=== PATIENT | male | born 1945 | race Caucasian/White ===

== ENCOUNTER 2016-06-25 02:44 | Inpatient (IN) | payer OTHER ==
[~2016-06-25] VITALS: Ht 188 cm; Wt 87.1 kg
[~2016-06-25 02:44] MED LIST: ACCUPRIL40 M1 PO; AMLODIPINE BESY10 M1 PO; DICLOFENAC SODI75 M2 PO; ELIQUIS5 M1 PO; HYDROCHLOROTH12.5 M2 PO; PROTONIX40 M3 PO; TOPROL XL100 M1 PO
--- NOTE | 2016-06-25 14:10 | Operative Report ---
Operative/Inv Procedure Report Surgery Date: 06/25/16 Name of Procedure: Right reverse total shoulder arthroplasty Pre-Operative Diagnosis: Right end-stage rotator cuff arthropathy Post-Operative Diagnosis: Right end-stage rotator cuff arthropathy Estimated Blood Loss: 300mL Surgeon/Fund Manager: JOHN PAUL,Shane Jimenez PA-C Anesthesia: general endotracheal tube, block IV Fluids: 1700mL Implants: Tornier Aequalis Reversed II Glenoid base plate 25mm Glenoid centered sphere 36mm Standard humeral stem 7B, 132.5 deg Reversed Centered Tray +0mm Reversed polyethylene insert 36mm +9mm Compression screws 4.5mm - 25mm, 18mm Locking screws 4.5mm - 20mm, 23mm Urine Output: Not recorded Drains: None Specimens: Humeral head send to pathology per hospital protocol Tourniquet: None Complications: None Condition: Stable Operative/Procedure Note Note: INDICATION FOR PROCEDURE: Naif Rizo is a 71 year-old right hand dominant male who developed rotator cuff arthropathy. He underwent rotator cuff repair several years ago; gradually developed increased pain, stiffness, and dysfunction in the shoulder. He has significant pain at night and with motion of the right shoulder. Imaging of the shoulder showed advanced degenerative changes consistent with rotator cuff arthropathy with large osteophytes, central wear of the glenoid, and humeral head migration. After discussing the risks, benefits, and alternatives to surgery with the patient, he has opted to proceed with right reverse total shoulder arthroplasty. OPERATIVE REPORT: Naif Rizo arrived at [facility] on 06/25/2016. He was met in the pre- operative holding area, where his operative exremity was marking and his medical history reviewed. A regional nerve block was performed by the anesthesia service. He was taken into the operating room and placed supine on the OR table. A time-out was performed, in which the patient, operative extremity, and procedure were verified. The patient was induced under general anesthesia. SCDs were applied to bilateral lower legs. No VTE chemoprophylaxis was administered. Perioperative antibiotics were given. The patient was placed in a modified beach chair position; care was taken to pad all bony prominences and support the head in a neutral position. The right upper extremity was prepped and draped in the usual sterile fashion. The arm was supported by an articulated arm positioner. An incision was made in the anterior shoulder and taken down to the deltopectoral interval. The interval was divided and the cephalic vein protected and retracted laterally. The conjoint tendon was identified and a self-retaining retractor was placed gently under the conjoint and the deltoid. The facia overlying the anterior shoulder was carefully debrided for better visualization. The long head of biceps was identified and tenodesed to the upper border of the pectoralis major tendon. The proximal portion of the tendon was cut and removed. The anterior circumflex arteries were identified inferomedial to the surgical neck; these were carefully ligated. The subscapularis tendon was identified, tagged, and a tenotomy peel was gently performed with progress external rotation of the shoulder. There were large osteophytes noted off the inferior humeral head. The capsule was carefully dissected off the humerus and care was taken to stay next to the bone to avoid damage to the axillary nerve. The shoulder was then subluxed anteriorly. No remaining supraspinatus tendon was noted. Osteotomes and ronguers were used to remove the osteophytes surrounding the humeral head. The articular portion of the humeral head was cut using a guide. The humeral canal was opened and sequentially broached up to a size 7. This was left in place and the humerus protected with a metal plate. Attention was then turned to the glenoid. A retractor was used to posteriorly translate the humerus for glenoid exposure. The glenoid had central wear with anterior and posterior osteophytes. The osteophytes were carefully removed, as was any remaning labral tissue. A central wire was placed with a guid 12mm from the inferior border of the glenoid and a reamer was placed over the pin. A large inferior osteophyte was subsequently noted and the pin moved up in the glenoid with 10 deg superior tilt. The inner and outer reamers were used to create a flat surface and a ronguer was used to remove any additional bone. The central peg was reamed and standard baseplate impacted into position. The anterior and posterior compression screws were placed with excellent purchase. The superior and inferior locking screws were then placed. The 36mm glenosphere was impacted into placed and tightened. The shoulder was carefully rotated to re-expose the humeral cut. A standard tray trial was placed, followed by +6mm and +9mm poly trials. After reduction of the shoulder, both has good fit and motion, however the +9mm poly provided improved stablization. All of the implants were removed and the shoulder copiously irrigated with normal saline with bacitracin. Two 2.0mm drill holes were placed in the lesser tuberosity and #2 fiberwire suture passed through the holes. The size 7 stem and centralized tray implants were carefully impacted into place, around the sutures. The +9mm poly was then impacted into place and the shoulder reduced. The arm was taken through a range of motion with fluid motion and good stability. The shoulder was again irrigated with normal saline. The fiberwire sutures around the stem were used to repair the subscapularis tendon to the lesser tuberosity with ta-khushboo suture technique. The arm was placed in 20 deg of external rotation to avoid over-tensioning. The deltopectoral interval was closed with three interrupted #2 ethibond sutures. The shoulder was again irrigated and closed in layers using 0 vicryl, 2-0 vicryl, and a running 3-0 prolene for skin. The incision was reinforced with steri strips and dressed with gauze and ABD and secured with foam tape. An ultrasling was placed. The patient was repositioned and extubated without incidence. He was moved to a stretcher and taken to the recovery room in stable condition.
--- NOTE | 2016-06-25 15:08 | RADIOLOGY REPORT ---
EXAMINATION: XR SHOULDER, RIGHT CLINICAL INFORMATION: Post right shoulder 28. COMPARISON: CT May 2016. MRI April 2016. X-ray July 2015. TECHNIQUE: Single AP view of the right shoulder FINDINGS: Right total shoulder arthroplasty noted. The glenoid component appears somewhat low-lying position along more inferior aspect of the glenoid glenoid No periprosthetic fracture or suspicious area of lucency. Air is noted in the soft tissues compatible with postsurgical change. Additional findings: Arthrosis of the AC joint. Low lung volume in the right hemithorax likely due to suboptimal inspiration. IMPRESSION: Right total shoulder arthroplasty. Glenoid component somewhat inferiorly positioned within the remaining glenoid. Correlate with surgical procedure to determine if this is of any clinical significance.
--- NOTE | 2016-06-25 15:21 | PN- Orthopedic ---
Subjective Subjective: The patient was seen this afternoon postoperatively. He reports being comfortable in that his pain was under adequate control. He has some complaints of a scratchy throat was otherwise comfortable. He denies chest pain, difficulty breathing, or palpitations. Objective Vital Signs and I&Os Vital signs: Blood pressure 92/56, pulse 80, temperature 97.9, O2 sat urination 90% on room air Physical Exam: Gen.: Alert and in no obvious distress Skin: Warm and dry Cardiac: S1 and S2 irregular Pulmonary: Bilateral breath sounds are equal with good exchange Extremities: Right upper extremity in sling, surgical dressing is clean, dry, and intact. Gross motor and sensory are intact and there is a palpable radial pulse. Bilateral lower extremities are warm without calf tenderness or significant edema. Assessment/Plan Assessment/Plan Assessment: 71-year-old male status post right reverse total shoulder arthroplasty. Postoperative the patient is progressing as expected and his pain is under adequate control. Plan: Out of bed and ambulate Advance diet as tolerated Monitor for postoperative void Strict I's and O's Continue current pain regiment GI and DVT prophylaxis Resume home medications Core Measures/Miscellaneous Venous Thromboembolism VTE Risk Factors: Age > 40, Surgery VTE Contraindications: No Contraindications VTE Diagnosis: No Beta Ayad Is Beta Ayad a Home Med? Yes If Yes, Was This Ordered Today? Yes Antibiotics Is Patient on Antibiotics? Yes If Yes: prophylaxis
[2016-06-25 16:54] VITALS: BP 98/60
[2016-06-25 22:26] VITALS: BP 118/76
--- NOTE | 2016-06-25 23:39 | NUR ---
PT ARRIVED TO FLOOR AT 1700 WITH AT BEDSIDE. ALERT AND ORIENTED X 3. VSS. SLING ON R ARM, + CMS. AT 2030, PT NAUSEOUS AND SWEATING ACCORDING TO . VSS. WHEN I WENT INTO ROOM PT STATED HE FELT MUCH BETTER AND DID NOT WANT ANY ZOFRAN. WILL CONTINUE TO MONITOR PATIENT.
[2016-06-26 07:03] VITALS: BP 100/70
--- NOTE | 2016-06-26 07:43 | PN- Orthopedic ---
Subjective Subjective: Pain Well-controlled, tolerating diet without nausea or vomiting, out of bed to bathroom, denies chest pain or shortness of breath, no hand paresthesias, would like to discharge home today Objective Vital Signs and I&Os Vital Signs Date Time Temp Pulse Resp B/P B/P Pulse O2 O2 Flow FiO2 Mean Ox Delivery Rate 06/26 0703 98.1 88 20 100/70 94 Room Air 06/25 2226 98.8 80 20 118/76 92 Room Air 06/25 1654 97.6 72 20 98/60 93 Room Air Intake & Output 06/26 0800 06/26 0000 06/25 1600 06/25 0800 06/25 0000 06/24 1600 Intake Total 850 Output Total 600 Balance 250 Intake, IV 500 Intake, Oral 350 Output, Urine 600 Patient 192 lb Weight Weight Reported by Patient Measurement Method Physical Exam: Gen.: NAD Cards: S1-S2 RRR Pulm: CTAB Abdomen: Nontender nondistended soft Extremities: RUE: Fur Tanner strength 5/5, palpable radial pulse, dressing CDI, tender to palpation over dressing, sling in place, sensation intact and equal bilaterally Assessment/Plan Assessment/Plan POD #1 status post right TSA, currently stable. PLAN: Eliquis for DVT prophylaxis Pain meds when necessary Hep-Lock Home meds Regular diet Sling to right arm DC planning Core Measures/Miscellaneous Venous Thromboembolism VTE Risk Factors: Age > 40, Surgery VTE Contraindications: No Contraindications VTE Diagnosis: No Beta Ayad Is Beta Ayad a Home Med? Yes If Yes, Was This Ordered Today? Yes Antibiotics Is Patient on Antibiotics? Yes If Yes: prophylaxis
[2016-06-26 08:10] LABS: ABSOLUTE BASOPHIL COUNT 0 /CUMM (0.0-0.2); ABSOLUTE EOSINOPHIL COUNT 0 /CUMM (0.0-0.7); ABSOLUTE GRANULOCYTE CT 8.3 /CUMM (1.4-6.5); ABSOLUTE MONOCYTE COUNT 1.3 /CUMM (0.10-0.60); BASOPHIL % 0.1 % (0.0-2.0); EOSINOPHIL % 0 % (0-5); MEAN CORPUSCULAR HGB 30.8 PG (27.0-31.0); MEAN CORPUSCULAR HGB CONC 34.3 G/DL (33.0-37.0); MEAN CORPUSCULAR VOLUME 89.8 FL (80.0-94.0); MEAN PLATELET VOLUME 8.6 FL (7.4-10.4); PLATELET COUNT 212 /CUMM (130-400); RBC DISTRIBUTION WIDTH 13.3 % (11.5-14.5); RED BLOOD CELL CT 3.68 /CUMM (4.70-6.10); WHITE BLOOD CELL COUNT 10.6 /CUMM (4.8-10.8)
--- NOTE | 2016-06-26 10:28 | Patient Discharge Instructions ---
Discharge Instructions General Discharge Information You were seen/treated for: Right end-stage rotator cuff arthropathy You had these procedures: Right reverse total shoulder arthroplasty Watch for these problems: fever>101, worsening pain at surgical site, drainage from the wound, redness at wound, changes in sensation or motor ability in the surgical arm Call Surgeon to remove: Stitches Do not soak the wound: Yes Daily wet to dry dressings: No No bath, but you may shower: Yes Other wound care: Keep wound clean and dry. May shower, no tub baths. Do not soak wound. Apply dry gauze to wound as needed. Diet Continue normal diet: Yes Recommended Diet: Regular Additional DIET Information: Resume Regular healthy diet Activity Full Activity/No Limits: No Activity Self Limited: Yes (activity as tolerated) Activity Limited to: Walking with Assistance Other activity limits: No movement of surgical shoulder. Wear sling at all times. No lifting with surgical arm. Acute Coronary Syndrome Inclusion Criteria At DC or during hospital stay patient has or had the following: ACS DIAGNOSIS No Discharge Core Measures Meds if any: Prescribed or Continued at Discharge Meds if any: NOT Prescribed or Continued at Discharge Congestive Heart Failure Inclusion Criteria At DC or during hospital stay patient has or had the following: CHF DIAGNOSIS No Discharge Core Measures Meds if any: Prescribed or Continued at Discharge Meds if any: NOT Prescribed or Continued at Discharge Cerebrovascular accident Inclusion Criteria At DC or during hospital stay patient has or had the following: CVA/TIA Diagnosis No Discharge Core Measures Meds if any: Prescribed or Continued at Discharge Meds if any: NOT Prescribed or Continued at Discharge Venous thromboembolism Inclusion Criteria VTE Diagnosis No VTE Type NONE VTE Confirmed by (Test) NONE Discharge Core Measures - Per Current guidelines, there needs to be overlap - treatment for the first 5 days of Warfarin therapy. - If discharged on Warfarin prior to 5 days of - overlap therapy, the patient will need to be - assessed for post discharge needs including - *Post discharge parental anticoagulation - *Warfarin and/or parental anticoagulation education - *Follow up date to check INR post discharge At least 5 days overlap therapy as Inpatient No Meds if any: Prescribed or Continued at Discharge Note: Overlap Therapy is Warfarin and Anticoagulant Meds if any: NOT Prescribed or Continued at Discharge
--- NOTE | 2016-06-26 10:49 | Surg Short-stay <48hrs Dis Sum ---
Visit Information Visit Dates Admission Date: 06/25/16 Discharge Date: 06/26/2016 Surgical Short Stay DC Summary Admission Diagnosis: Right end-stage rotator cuff arthropathy Final Diagnosis: Right end-stage rotator cuff arthropathy, s/p Right reverse total shoulder arthroplasty Procedure(s): Right reverse total shoulder arthroplasty Summary/Significant Findings: 71-year-old male admitted 06/25/2016 for elective right reverse total shoulder arthroplasty. Operative procedure was performed by Dr. Tadeo without complications. Postoperatively, she was transferred to the surgical floor. He has worked with physical and occupational therapy. He is tolerating a regular diet, and his pain is well controlled with pain medications. He has been deemed stable for discharge Condition at Discharge: Stable Discharge Disposition: home health services Discharge instructions provided to patient/family: Yes Post discharge follow-up plan: Follow up with Dr. Tadeo as scheduled. Resume regular healthy diet. Take pain medications as needed. Sling at all times to right upper extremity. Activity as tolerated. Contact Dr. Tadeo's office is any questions or concerns.
[2016-06-26 12:14] VITALS: BP 118/80
[2016-06-26] MEDS ORDERED: TRAMADOL HCL50 M1 PO (14:16)
--- NOTE | 2016-06-26 15:19 | PN- Orthopedic ---
Surgical Brief Attending Note Brief Attending Note: Patient seen and examined; at bedside. Doing well, denies significant pain. Has not taken much for pain and does not want to go home with narcotics. Did not sleep well due to loud patient next door. Denies chest pain, shortness of breath, or GI upset. He is hoarse but denies sore throat. EXAM: Dressing clean, dry, intact. 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 A/P: 71yo M PDO#1 right reverse total shoulder. Doing well. Plan for d/c home today. 1. NWB RUE, ultrasling at all times. 2. Pain control 3. Resume Eliquis POD#1 4. Resume home medications 5. Dressing may be removed and he may shower on PDO#3. Do not submerge incision ; pat dry after shower. 6. Reviewed limitations with RUE and sling use. Follow up in clinic as scheduled.
[2016-07-25] MEDS ORDERED: QUINAPRIL HCL20 M1 PO (11:15)
[2016-07-25] MEDS ORDERED: AMLODIPINE BESY10 M1 PO (11:15)
== END 2016-06-26 14:57 | DRG 483 ==
LOC: 2NB 02:44 → SDA 02:44 → EDSTATUS 07:00 → SDA 07:00 → STS 07:00 → ENRESERV 16:05 → 2NB 16:52 → ENPENDDIS 06-26 14:42 → 2NB 06-26 14:57
PROVIDERS: Physician Assistant Surgical; ADMIT Orthopaedic Surgery Sports Medicine
PROC: 0RRJ00Z Replacement of Right Shoulder Joint with Reverse Ball and Socket Synthetic Substitute, Open Approach (ICD-10-PCS; principal; 2016-06-25)
PROC: 3E0T3BZ Introduction of Anesthetic Agent into Peripheral Nerves and Plexi, Percutaneous Approach (ICD-10-PCS; 2016-06-25)
DX: M19.011 Primary osteoarthritis, right shoulder (principal); I48.91 Unspecified atrial fibrillation; I10 Essential (primary) hypertension; Z79.01 Long term (current) use of anticoagulants; K22.70 Barrett's esophagus without dysplasia; M19.90 Unspecified osteoarthritis, unspecified site; Z85.820 Personal history of malignant melanoma of skin; K21.9 Gastro-esophageal reflux disease without esophagitis
CPT/HCPCS: 2NBP; 73030-RT; 88305; 97110-GO; 97116-GO; 97161-GP; 97165-GO; C9399; J0131; J0690; J1885; J7508

== ENCOUNTER 2016-06-27 16:25 | Inpatient (IN) | payer OTHER ==
[~2016-06-27] VITALS: Ht 188 cm; Wt 83.5 kg
[~2016-06-27 16:25] MED LIST changes: +TRAMADOL HCL50 M1 PO
--- NOTE | 2016-06-27 16:35 | ED CARDIAC/CP/PALPITATIONS ---
History of Present Illness General Chief Complaint: General Adult Stated Complaint: BIBA, CARDIAC ISSUES Source: patient, family, EMS Exam Limitations: no limitations Vital Signs & Intake/Output Vital Signs & Intake/Output Vital Signs Date Time Temp Pulse Resp B/P B/P Pulse O2 O2 Flow FiO2 Mean Ox Delivery Rate 06/27 1641 99.7 115 20 131/87 91 Nasal 2.0L Cannula 06/27 1640 93 Nasal 4.0L Cannula Triage Nurses Notes Reviewed? yes Onset: Gradual Duration: day(s): (1) Timing: remote history Quality/Severity: moderate Location: central Radiation: no radiation Activities at Onset: none Prior Chest Pain/Card Workup: stress test HPI: Patient is a 71-year-old male with history of atrial fibrillation, pulmonary embolus, hypertension, on allografts with recent right total shoulder replacement presenting to the emergency department with chief complaint of palpitations, shortness of breath that started this morning. Also complaining of urinary retention that started today. He thought that he may be developing a urinary tract infection so he went to walk in clinic they gave him Macrobid for a questionable urinary tract infection. Patient denies any fevers or chills nausea vomiting. No chest pain. Denies aNY LOWER EXT SWELLING. He reports that his ELIQUIS is held for 3 days prior to the surgery and he resumed ELIQUIS yesterday. (CATHERINE JACINTO,JUAN C) Allergies Coded Allergies: No Known Allergies (06/30/16) Reconcile Medications Apixaban (Eliquis) 5 MG TABLET 1 TAB PO BID A FIB TAKE 2 TABLETS (10MG) TWICE DAILY FOR 7 DAYS (TILL THE END OF 07/06) THEN 1 TABLET BY MOUTH TWICE DAILY TEHERAFTER Metoprolol Succ XL (Toprol XL) 100 MG TAB.ER.24H 1 TAB PO DAILY A FIB ( Reported) Pantoprazole Sodium (Protonix) 40 MG TABLET.DR 1 TAB PO BID GERD (Reported) (DEX PAUL,TATIANA Lee) Past History Travel History Traveled to [place] past 21 day No Medical History Any Pertinent Medical History? see below for history Neurological: NONE EENT: NONE Cardiovascular: AFIB, hypertension Respiratory: NONE Gastrointestinal: NONE Hepatic: NONE Renal: NONE Musculoskeletal: osteoarthritis Psychiatric: NONE Endocrine: NONE Blood Disorders: NONE Cancer(s): melanoma History of MRSA: No History of VRE: No History of CDIFF: No Surgical History Surgical History: hernia repair-incisional Psychosocial History Who do you live with Spouse Services at Home None What is your primary language Peruvian Family History Hx Contributory? No (JUAN C STRATTON) Review of Systems Review of Systems Constitutional: Reports: no symptoms. Comments Review of systems: See HPI, All other systems negative. Constitutional, no chills fever or weight loss HEENT: No visual changes no sore throat no congestion Cardiovascular: No chest pain, orthopnea or ankle swelling Skin, no jaundice no rashes Respiratory: ,NO cough sputum or hemoptysis GI: No nausea no vomiting : No dysuria No hematuria Muscle skeletal: no back pain, no neck pain, Neurologic: No numbness no confusion Psych: No stress anxiety or depression,. Heme/endocrine: No bruising no bleeding no polyuria or polydipsia Immunology: No splenectomy or history of AIDS (JUAN C STRATTON) Physical Exam Physical Exam General Appearance: well developed/nourished, no apparent distress, alert, awake , comfortable Cardiovascular: TACHYCARDIC Comments: Well-developed well-nourished person in no acute distress HEENT: Pupils equally round and reactive to light and accommodation. Nose is atraumatic. Pharynx normal. No swelling or edema. Neck: Supple, no lymphadenopathy, normal range of motion without pain or tenderness Back: Nontender, no CVA tenderness. Full range of motion Cardiovascular: TACHYCARDIC rate and rhythms no murmurs rubs or gallops, normal JVP Respiratory: Chest nontender. No respiratory distress.breath sounds slightly diminished to auscultation bilaterally Abdomen: Soft, mild tenderness to palpation over the suprapubic region, nondistended, no appreciable organomegaly. Normal bowel sounds. No ascites Extremity: Right upper extremity is in a shoulder immobilizer. No edema in the lower extremities, no calf tenderness to palpation, normal and equal pulses. Neuro: Alert oriented x3, motor sensory normal Skin: No appreciable rash on exposed skin, skin is warm and dry. Psych: Mood and affect is normal, memory and judgment is normal. Core Measures ACS in differential dx? Yes Severe Sepsis Present: No Septic Shock Present: No (JUAN C STRATTON) Progress Differential Diagnosis: AMI, aortic dissection, CHF/pulm edema, hyperkalemia, hypovolemia, musculoskeletal pain, pneumonia, pneumothorax, pulmonary embolism, unstable angina Diagnostic Imaging: Viewed by Me: CT Scan. Discussed w/RAD: CT Scan. Radiology Impression: PATIENT: MARIO FERGUSON PRESENT AGE: 71 PATIENT ACCOUNT NO: [id number] : 46 LOCATION: [facility] ORDERING PHYSICIAN: JUAN C JACINTO SERVICE DATE: 06/27/16 EXAM TYPE: CAT - CTA CHEST-PULMONARY EMBOLISM EXAMINATION: CT ANGIOGRAM OF THE CHEST WITH AND WITHOUT CONTRAST (CT PULMONARY ANGIOGRAM FOR PE) CLINICAL INFORMATION: Shortness of breath. Palpitations. COMPARISON: None TECHNIQUE: Prior to contrast administration, noncontrast localization images were obtained. Subsequently, multidetector volumetric imaging was performed from the thoracic inlet to below the diaphragms following the administration of 95 mL Optiray 350 intravenous contrast. No contrast reaction reported. Sagittal, coronal, and MIP oblique sagittal reformatted images were obtained on the CT workstation, uploaded to PACS, and reviewed. Total exam dose-length product 438 mGy-cm. FINDINGS: QUALITY OF STUDY/CONTRAST BOLUS: Satisfactory PULMONARY ARTERIES: There is a right upper lobe segmental filling defect seen on series 2 image 203. A subsegmental defect is seen on series 2 image 157. No definite additional pulmonary arterial filling defects are seen. THORACIC AORTA: No aneurysm or dissection. LUNG: The central airways are patent. Subsegmental linear left basilar atelectasis. Additional dependent atelectasis with air bronchograms in the right lower lobe. There appears to be right middle lobe collapse. PLEURA: No pleural effusion or pneumothorax. MEDIASTINUM: Normal heart size. Coronary artery calcifications. No pericardial effusion. No hilar or mediastinal lymphadenopathy. No evidence of septal bowing or right heart strain. CHEST WALL/AXILLA: No axillary or internal mammary lymphadenopathy. There is gas within the right chest wall in the region of the right shoulder. This could be from recent surgery as there is an arthroplasty noted. OSSEOUS STRUCTURES: Reverse right total shoulder arthroplasty. No acute osseous abnormality. UPPER ABDOMEN: Unremarkable. No reflux of contrast into the hepatic veins to suggest elevated right heart pressures. IMPRESSION: 1. Small right upper lobe pulmonary emboli. No evidence of elevated right heart pressure. 2. Areas of subsegmental atelectasis in the lungs. Probable right middle lobe collapse. 3. Gas within the right chest wall soft tissues likely associated with recent arthroplasty. Initial ED EKG: AFIB 117 BPM Prior EKG: changed Comments: On arrival patient is hypoxic and tachycardic on arrival with recent surgery and remote history of pulmonary embolus. Suspicion is high for PE. Patient put on supplement oxygen. Will obtain blood work. Patient will go for CTA. Patient informed of all lab results. Slight hypokalemia noted on lab work, slightly elevation in white blood cell count. No signs of urinary tract infection. Patient was also having urinary retention, we were able to obtain approximately 1 LITER dark yellow urine from Martinez catheter once inserted into the bladder. Urinary retention likely secondary to anesthesia. CTA shows small pulmonary embolus in the right upper lobe along with right middle lobe collapse. Patient will be admitted for pulmonary embolus, urinary retention. He will be admitted to telemetry. May need further anticoagulation medication adjustment. (CATHERINE JACINTO,JUAN C) Plan of Care: Orders Procedure Date/time Status Admit to inpatient 06/27 194 Active US-EXT BILAT VENOUS DOPPLER 06/27 192 Active Martinez, Insertion/Removal/Asses 06/27 1714 Active CULTURE,URINE 06/27 1714 Active Telemetry/Junior Engineer 06/27 1635 Active URINALYSIS 06/27 1635 Complete TSH REFLEX 06/27 1635 Active TROPONIN LEVEL 06/27 1635 Active PARTIAL THROMBOPLASTIN TIME 06/27 1635 Complete PROTHROMBIN TIME 06/27 1635 Complete GLYCOSYLATED HGB 06/27 1635 Active COMPREHENSIVE METABOLIC PANEL 06/27 1635 Active CBC WITHOUT DIFFERENTIAL 06/27 1635 Complete ACETONE 06/27 1635 Active EKG 06/27 1627 Active Laboratory Tests 06/27/16 1744: Urine Color YEL, Urine Clarity HAZY H, Urine pH 6.0, Ur Specific [place] 1.015, Urine Protein TRACE H, Urine Ketones 15 H, Urine Nitrite NEG, Urine Bilirubin NEG, Urine Urobilinogen 0.2, Ur Leukocyte Esterase NEG, Ur Microscopic SEDIMENT EXAMINED, Urine RBC 50-75 H, Urine WBC RARE, Urine Hemoglobin LARGE H, Urine Glucose 100 H 06/27/16 1647: Anion Gap 13, Estimated GFR > 60, BUN/Creatinine Ratio 21.4, Glucose 170 H, Hemoglobin A1c Pending, Calcium 9.1, Total Bilirubin 1.3, AST 54, ALT 31, Alkaline Phosphatase 56, Troponin I 0.03, Total Protein 6.2 L, Albumin 3.8, Globulin 2.4, Albumin/Globulin Ratio 1.6, TSH &T3 &Free T4 Intrp 0.666, PT 14.2 H, INR 1.36 H, APTT 29, CBC w Diff NO MAN DIFF REQ, RBC 3.88 L, MCV 90.8, MCH 31.3 H, RDW 12.9, MPV 8.2, Gran % 89.3 H, Lymphocytes % 4.8 L, Monocytes % 5.6, Eosinophils % 0, Basophils % 0.3, Absolute Granulocytes 12.2 H, Absolute Lymphocytes 0.7 L, Absolute Monocytes 0.8 H, Absolute Eosinophils 0, Absolute Basophils 0, PUBS MCHC 34.5, Acetone Level NEGATIVE Microbiology 06/28 1743 URINE ROUT: Urine Culture - RECD Comments: 06/27/2016 7:36:22 PM I have discussed this patient's case with Dr. Restrepo. Patient to be admitted to telemetry. (DEX PAUL,TATIANA Lee) Departure Departure Time of Disposition: 1905 Disposition: STILL A PATIENT Condition: Stable Clinical Impression Primary Impression: Pulmonary embolus Qualifiers: Pulmonary embolism type: other Chronicity: unspecified Acute cor pulmonale presence: without acute cor pulmonale Qualified Code: I26.99 - Other pulmonary embolism without acute cor pulmonale Secondary Impressions: Hypoxia, Urinary retention Referrals: ADAM VAN DO (PCP/Family) Departure Forms: Customer Survey General Discharge Information Admission Note Spoke With: BESSY PAUL,SUSIE Callaway Documentation of Exam: Documentation of any treatments & extenuating circumstances including Concerns Regarding Discharge (functional status, medication knowledge or non-compliance, living conditions, etc.) that warrant an admission rather than observation: Patient requiring pulmonology consultation, may require additional anticoagulation, supplemental oxygen which is new for this patient. Discharge at this time would be medically harmful. (JUAN C STRATTON) Departure Prescriptions: Current Visit Scripts Apixaban (Eliquis) 1 TAB PO BID 30 Days TAKE 2 TABLETS (10MG) TWICE DAILY FOR 7 DAYS (TILL THE END OF 07/06) THEN 1 TABLET BY MOUTH TWICE DAILY TEHERAFTER PA/SOCIAL WORKER PSYCHIATRIC Co-Sign Statement Statement: ED Attending supervision documentation- [x] I saw and evaluated the patient. I have also reviewed all the pertinent lab results and diagnostic results. I agree with the findings and the plan of care as documented in the PA's/SOCIAL WORKER PSYCHIATRIC's documentation. [] I have reviewed the ED Record and agree with the PA's/SOCIAL WORKER PSYCHIATRIC's documentation. [] Additions or exceptions (if any) to the PAs/SOCIAL WORKER PSYCHIATRIC's note and plan are summarized below: [] (DEX PAUL,TATIANA Lee) Critical Care Note Critical Care Note Critical Care Time: 30-74 min (CATHERINE JACINTO,JUAN C)
--- NOTE | 2016-06-27 16:42 | NUR ---
71 YEAR OLD MALE BIBA FROM HOME C/O SOB AND DIFFICULTY URINATING. PER EMS PT WAS FOUND TO BE IN A FIB RATE IN THE 110'S ON ARRIVAL. PT OXYGENATION NOTED TO BE 85% ON RA, PLACED ON NC 2L WITH IMPROVEMENT TO 89% TITRATED UP TO 4L WITH IMPROVEMENT TO 93%. PT REPORTS HX OF PE AND HAD SURGERY TO RIGHT SHOULDER ON FRIDAY.
--- NOTE | 2016-06-27 16:50 | NUR ---
LINE EST #20 TO [facility]. LABS SENT (LAV,SST,BLUE,EXTRA MARI.)
[2016-06-27 16:59] LABS: ABSOLUTE BASOPHIL COUNT 0 /CUMM (0.0-0.2); ABSOLUTE EOSINOPHIL COUNT 0 /CUMM (0.0-0.7); ABSOLUTE GRANULOCYTE CT 12.2 /CUMM (1.4-6.5); ABSOLUTE LYMPH COUNT 0.7 /CUMM (1.2-3.4); ABSOLUTE MONOCYTE COUNT 0.8 /CUMM (0.10-0.60); BASOPHIL % 0.3 % (0.0-2.0); EOSINOPHIL % 0 % (0-5); GRANULOCYTE % 89.3 % (42.2-75.2); HEMATOCRIT 35.2 % (42-52); MEAN CORPUSCULAR HGB 31.3 PG (27.0-31.0); MEAN CORPUSCULAR HGB CONC 34.5 G/DL (33.0-37.0); MEAN CORPUSCULAR VOLUME 90.8 FL (80.0-94.0); MEAN PLATELET VOLUME 8.2 FL (7.4-10.4); PLATELET COUNT 232 /CUMM (130-400); RBC DISTRIBUTION WIDTH 12.9 % (11.5-14.5); RED BLOOD CELL CT 3.88 /CUMM (4.70-6.10); WHITE BLOOD CELL COUNT 13.7 /CUMM (4.8-10.8)
[2016-06-27 17:06] LABS: PT 14.2 SEC (9.4-12.5); PTT 29 SEC (25-37)
--- NOTE | 2016-06-27 17:51 | NUR ---
PT TO CAT SCAN AT THIS TIME.
--- NOTE | 2016-06-27 18:01 | NUR ---
URINE TRIO SENT FROM [facility].
--- NOTE | 2016-06-27 18:42 | CT SCAN REPORT ---
EXAMINATION: CT ANGIOGRAM OF THE CHEST WITH AND WITHOUT CONTRAST (CT PULMONARY ANGIOGRAM FOR PE) CLINICAL INFORMATION: Shortness of breath. Palpitations. COMPARISON: None TECHNIQUE: Prior to contrast administration, noncontrast localization images were obtained. Subsequently, multidetector volumetric imaging was performed from the thoracic inlet to below the diaphragms following the administration of 95 mL Optiray 350 intravenous contrast. No contrast reaction reported. Sagittal, coronal, and MIP oblique sagittal reformatted images were obtained on the CT workstation, uploaded to PACS, and reviewed. Total exam dose-length product 438 mGy-cm. FINDINGS: QUALITY OF STUDY/CONTRAST BOLUS: Satisfactory PULMONARY ARTERIES: There is a right upper lobe segmental filling defect seen on series 2 image 203. A subsegmental defect is seen on series 2 image 157. No definite additional pulmonary arterial filling defects are seen. THORACIC AORTA: No aneurysm or dissection. LUNG: The central airways are patent. Subsegmental linear left basilar atelectasis. Additional dependent atelectasis with air bronchograms in the right lower lobe. There appears to be right middle lobe collapse. PLEURA: No pleural effusion or pneumothorax. MEDIASTINUM: Normal heart size. Coronary artery calcifications. No pericardial effusion. No hilar or mediastinal lymphadenopathy. No evidence of septal bowing or right heart strain. CHEST WALL/AXILLA: No axillary or internal mammary lymphadenopathy. There is gas within the right chest wall in the region of the right shoulder. This could be from recent surgery as there is an arthroplasty noted. OSSEOUS STRUCTURES: Reverse right total shoulder arthroplasty. No acute osseous abnormality. UPPER ABDOMEN: Unremarkable. No reflux of contrast into the hepatic veins to suggest elevated right heart pressures. IMPRESSION: 1. Small right upper lobe pulmonary emboli. No evidence of elevated right heart pressure. 2. Areas of subsegmental atelectasis in the lungs. Probable right middle lobe collapse. 3. Gas within the right chest wall soft tissues likely associated with recent arthroplasty. This critical result was discussed with OPHELIA BURTON by telephone at 06/27/2016 6:30 PM and it was ascertained that the content and urgency of the report was understood at the time of direct communication. VTE: positive
--- NOTE | 2016-06-27 19:55 | NUR ---
PT CONTINUES AT US VIA STRETCHER.
--- NOTE | 2016-06-27 20:24 | ULTRASOUND REPORT ---
EXAMINATION: US TRIPLEX OF LOWER EXTREMITIES, BILATERAL CLINICAL INFORMATION: Deep vein thrombosis. Pulmonary embolism COMPARISON: CTA chest performed same day TECHNIQUE: Color-flow triplex imaging with spectral analysis and compression Doppler were performed on the lower extremities. FINDINGS: Respiratory variation, normal compression and augmented flow are noted throughout the lower extremities. The visualized common femoral vein, superficial femoral vein, profunda femoral vein, popliteal vein and midcalf peroneal and posterior tibial venous segments show no evidence of deep venous thrombosis. There is no Mccain's cyst. IMPRESSION: Normal triplex scan without evidence of deep venous thrombosis involving the lower extremities.
--- NOTE | 2016-06-27 21:51 | NUR ---
HEPARIN INITIATED AT 26ML/HR AT THIS TIME. HEPARIN BOLUS ADMISTERED WELL AT THIS TIME. PT OFFERS NO COMPLAINTS. DR. DOHERTY AT BEDSIDE FOR EVALUATION. PT AWAITING BED ASSIGNMENT, VERBALIZES UNDERSTANDING.
--- NOTE | 2016-06-27 22:16 | NUR ---
Emergency Dept [facility] Admit Note: To be admitted to [facility] by DR PANCHAL with PE as the diagnosis, to TELE/OBS location. Nursing Photographic Press Screwmaker and admitting notified 06/27/16 at 2137 PT WILL GO TO ROOM 183-1
--- NOTE | 2016-06-27 22:41 | NUR ---
REPORT GIVEN TO DB HARPER. DISTIBUTION BOOKED.
--- NOTE | 2016-06-27 22:47 | NUR ---
PT TRANSPORTED TO FLOOR
[2016-06-28 04:13] LABS: ABSOLUTE BASOPHIL COUNT 0 /CUMM (0.0-0.2); ABSOLUTE EOSINOPHIL COUNT 0 /CUMM (0.0-0.7); ABSOLUTE GRANULOCYTE CT 5.8 /CUMM (1.4-6.5); ABSOLUTE LYMPH COUNT 1.5 /CUMM (1.2-3.4); ABSOLUTE MONOCYTE COUNT 0.7 /CUMM (0.10-0.60); BASOPHIL % 0.4 % (0.0-2.0); EOSINOPHIL % 0.2 % (0-5); GRANULOCYTE % 72.1 % (42.2-75.2); HEMATOCRIT 31.9 % (42-52); MEAN CORPUSCULAR HGB 31.1 PG (27.0-31.0); MEAN CORPUSCULAR HGB CONC 34.7 G/DL (33.0-37.0); MEAN CORPUSCULAR VOLUME 89.8 FL (80.0-94.0); PLATELET COUNT 191 /CUMM (130-400); RBC DISTRIBUTION WIDTH 13.2 % (11.5-14.5); RED BLOOD CELL CT 3.55 /CUMM (4.70-6.10); WHITE BLOOD CELL COUNT 8.1 /CUMM (4.8-10.8)
[2016-06-28 04:21] LABS: PTT 52 SEC (25-37)
[2016-06-28 08:03] VITALS: BP 136/92
--- NOTE | 2016-06-28 10:07 | History & Physical ---
ADAN MAZARIEGOS 06/28/16 0934: General Information and HPI MD Statement: I have seen and personally examined MARIO FERGUSON and documented this H&P. The patient is a 71 year old M who presented with a patient stated chief complaint of []. Exam Limitations: no limitations History of Present Illness: He is 71-year-old man with past medical history of hypertension, PE, A. fib on Eliquis , osteoarthritis, right rotator cuff arthropathy and recent right total shoulder arthroplasty on 06/25/[address] Shwetha EMANUEL from home with complaint of shortness of breath and difficulty urinating. When he came to ER his temperature was 99.7 pulse 115, respiratory rate 20, blood pressure 131/87 and oxygen saturation was 85% on room air. He was placed on 4 L of oxygen via nasal cannula. Martinez catheter was also placed in. CTA was done and foumd to have a small right upper lobe pulmonary emboli and there was no evidence of elevated right heart pressure. He was started on IV heparin drip and transferred to telemetry floor. This morning he is hemodynamically stable. He is still on 3 L of oxygen via nasal cannula. Patient offers no complaints. According to patient he recently had right shoulder total arthroplasty and stopped taking his Eliquis 3 days prior to surgery. He restarted his Eliquis next day after surgery. After discharge from hospital he was unable to urinate and went to a walk-in clinic where he was diagnosed with UTI and started on Macrobid. He took only one dose of Macrobid. While at home he was short of breath, feeling lower abdominal pain and unable to urinate so called 911. Patient states that he had same problem with urination when he had his hernia repair surgery [address] Nixon for his urinary problem at that time. Patient also reports having history of BPH but he is not on any medication for that. For his cardiac issues he sees Dr. Collier. Allergies/Medications Allergies: Coded Allergies: No Known Allergies (06/18/16) Home Med list Amlodipine Besylate 10 MG TABLET 1 TAB PO DAILY HTN (Reported) Apixaban (Eliquis) 5 MG TABLET 1 TAB PO BID A FIB (Reported) Hydrochlorothiazide 12.5 MG TABLET 1 TAB PO DAILY HTN (Reported) Metoprolol Succ XL (Toprol XL) 100 MG TAB.ER.24H 1 TAB PO DAILY A FIB ( Reported) Pantoprazole Sodium (Protonix) 40 MG TABLET.DR 1 TAB PO BID GERD (Reported) Quinapril HCl (Accupril) 40 MG TABLET 1 TAB PO DAILY HTN (Reported) Compliance With Home Meds: GOOD Past History Travel History Traveled to [place] past 21 day No Medical History Neurological: NONE EENT: NONE Cardiovascular: AFIB, hypertension Respiratory: NONE Gastrointestinal: NONE Hepatic: NONE Renal: NONE Musculoskeletal: osteoarthritis Psychiatric: NONE Endocrine: NONE Blood Disorders: NONE Cancer(s): melanoma History of MRSA: No History of VRE: No History of CDIFF: No Isolation History: Standard Surgical History Surgical History: hernia repair-incisional Past Family/Social History Psychosocial History Where do you live? Home Who Do You Live With? family Services at Home: None Smoking Status: Never Smoked ETOH Use: denies use Illicit Drug Use: denies illicit drug use Functional Ability ADLs Independent: dressing, eating, toileting, bathing. Ambulation: independent Employment History Employment Retired Profession/Employer [employer] Review of Systems Review of Systems Constitutional: Reports: see HPI. Exam & Diagnostic Data Last 24 Hrs of Vital Signs/I&O Vital Signs Date Time Temp Pulse Resp B/P B/P Pulse O2 O2 Flow FiO2 Mean Ox Delivery Rate 06/28 0857 86 136/92 06/28 0817 Nasal 3.0L Cannula 06/28 0803 98.4 86 18 136/92 94 Room Air 06/28 0021 99.4 83 18 93 Nasal Cannula 06/28 0000 Nasal 3.0L Cannula 06/27 2151 98.9 100 18 121/75 93 Nasal 3.0L Cannula 06/27 2052 94 Nasal 3.0L Cannula 06/27 1642 99.7 115 20 131/87 91 Nasal 2.0L Cannula 06/27 1641 93 Nasal 4.0L Cannula Intake & Output 06/28 1600 06/28 0800 06/28 0000 Intake Total 160 Output Total 1450 3800 Balance -1290 -3800 Intake, IV 160 Output, Urine 1450 3800 Patient 190 lb Weight Weight Reported by Patient Measurement Method Physical Exam General Appearance Alert, Oriented X3, Cooperative, No Acute Distress HEENT Mucous Membr. moist/pink Neck Supple Cardiovascular irregularly irregular Lungs Clear to Auscultation Abdomen Normal Bowel Sounds, Soft, No Tenderness Neurological Normal Speech, Sensation Intact, Cranial Nerves 3-12 NL Extremities right arm sling. bandage intact right shoulder Assessment/Plan Assessment: He is 71-year-old man with past medical history of hypertension, PE, A. fib on Eliquis , osteoarthritis, right rotator cuff arthropathy and recent right total shoulder arthroplasty on 06/25/[address] Tadeo. Problem list 1. Right upper lobe pulmonary emboli. Seems provoked as patient was without Eliquis for at least 4 days plus he was on bed for quite some time because of his surgery. No evidence of elevated right heart pressure on CTA. On heparin drip right now. Bilateral venous Doppler ultrasound negative for DVT. 2. Urinary retention status post Martinez catheter placement. Could be due to anesthesia effect and decreased mobility after surgery. Reports having same problem after incisional hernia repair 7 years ago. Urine and urine bag is very dark. seems clear.? H/O BPH. not on any meds. No evidence of UTI. 3. Leukocytosis on admission. Was reactive 4. History of A. fib. Patient was started on IV heparin drip for PE. He is on metoprolol for rate control 5. History of hypertension on amlodipine, hydrochlorothiazide and quinapril at home. 6. History of Perez's esophagus. On Protonix PLAN * Monitor vitals closely * Continue telemetry monitoring and watch for heart rate * Continue supplemental oxygen for now and taper it down to off as tolerated * Check electrolytes daily and replete accordingly * Will discontinue heparin Drip and restart Eliquis at home dose * Continue metoprolol for rate control * Urology consult by Dr. Nixon * Holding antihypertensives for now as blood pressure is within normal range * Continue other home medications * Heart healthy diet * DVT prophylaxis * Full code As Ranked By This Provider Problem List: 1. Pulmonary embolus Qualifiers Pulmonary embolism type: other Chronicity: unspecified Acute cor pulmonale presence: without acute cor pulmonale Qualified Code: I26.99 - Other pulmonary embolism without acute cor pulmonale 2. Urinary retention Core Measures/Miscellaneous Acute Coronary Syndrome ACS Diagnosis: No Cerebrovascular Accident CVA/TIA Diagnosis: No Congestive Heart Failure CHF Diagnosis: No Venous Thromboembolism VTE Risk Factors: Acute medical illness, Age > 40 No [facility] VTE prophylaxis d/t: No contraindications No VTE Pharm Prophylaxis d/t: No contraindications VTE Diagnosis: No VTE Type: NONE VTE Confirmed by (Test): NONE Severe Sepsis Severe Sepsis Present: No Septic Shock Septic Shock Present: No Miscellaneous Documentation Attending Case Discussed With: LORRIE GOTTLIEB MD Primary Care Physician: ADAM VAN DO Patient sees these Specialists Dr. Nando Nixon Level of Patient Care: Telemetry Consults Needed: Consulting Specialty: Urology LORRIE GOTTLIEB MD 06/28/16 1339: Attending MD Review Statement Attending Statement Attending MD Statement: examined this patient, discuss w/resident/PA/MED DIR, agreed w/resident/PA/MED DIR, discussed with family, reviewed EMR data (avail), discussed with nursing, discussed with case mgmt, reviewed images, amended to note Attending Assessment/Plan: Patient seen and examined, still complaining of hoarse voice. He denies any current shortness of breath. He still requiring oxygen. He denies any chest pain. Vital Signs Date Time Temp Pulse Resp B/P B/P Pulse O2 O2 Flow FiO2 Mean Ox Delivery Rate 06/28 0857 86 136/92 06/28 0817 Nasal 3.0L Cannula 06/28 0803 98.4 86 18 136/92 94 Room Air 06/28 0021 99.4 83 18 93 Nasal Cannula 06/28 0000 Nasal 3.0L Cannula 06/27 2151 98.9 100 18 121/75 93 Nasal 3.0L Cannula 06/27 2052 94 Nasal 3.0L Cannula 06/27 1642 99.7 115 20 131/87 91 Nasal 2.0L Cannula 06/27 1641 93 Nasal 4.0L Cannula on exam; aox3, nad cv; s1,s2, rrr resp; clear abd; soft, nt, bs+ ext; no edema. ms: rue in sling. Laboratory Tests 06/28 06/27 0350 1744 Chemistry Sodium (137 - 145 mmol/L) 138 Potassium (3.5 - 5.1 mmol/L) 3.5 Chloride (98 - 107 mmol/L) 104 Carbon Dioxide (22 - 30 mmol/L) 24 Anion Gap (5 - 16) 9 BUN (9 - 20 mg/dL) 10 Creatinine (0.7 - 1.2 mg/dL) 0.7 Estimated GFR (>60 ml/min) > 60 BUN/Creatinine Ratio (7 - 25 %) 14.3 Glucose (65 - 99 mg/dL) 98 Calcium (8.4 - 10.2 mg/dL) 8.8 Magnesium (1.6 - 2.3 mg/dL) 1.9 Total Bilirubin (0.2 - 1.3 mg/dL) 1.1 AST (17 - 59 U/L) 42 ALT (21 - 72 U/L) 35 Alkaline Phosphatase (< 127 U/L) 49 Troponin I (<0.11 ng/ml) 0.04 Total Protein (6.3 - 8.2 g/dL) 5.3 L Albumin (3.5 - 5.0 g/dL) 3.1 L Globulin (1.9 - 4.2 gm/dL) 2.2 Albumin/Globulin Ratio (1.1 - 2.2 %) 1.4 Coagulation APTT (25 - 37 SEC) 52 H Hematology CBC w Diff NO MAN DIFF REQ WBC (4.8 - 10.8 /CUMM) 8.1 RBC (4.70 - 6.10 /CUMM) 3.55 L Hgb (14.0 - 18.0 G/DL) 11.1 L Hct (42 - 52 %) 31.9 L MCV (80.0 - 94.0 FL) 89.8 MCH (27.0 - 31.0 PG) 31.1 H RDW (11.5 - 14.5 %) 13.2 Plt Count (130 - 400 /CUMM) 191 MPV (7.4 - 10.4 FL) 8.0 Gran % (42.2 - 75.2 %) 72.1 Lymphocytes % (20.5 - 51.1 %) 18.5 L Monocytes % (1.7 - 9.3 %) 8.8 Eosinophils % (0 - 5 %) 0.2 Basophils % (0.0 - 2.0 %) 0.4 Absolute Granulocytes (1.4 - 6.5 /CUMM) 5.8 Absolute Lymphocytes (1.2 - 3.4 /CUMM) 1.5 Absolute Monocytes (0.10 - 0.60 /CUMM) 0.7 H Absolute Eosinophils (0.0 - 0.7 /CUMM) 0 Absolute Basophils (0.0 - 0.2 /CUMM) 0 PUBS MCHC (33.0 - 37.0 G/DL) 34.7 Urines Urine Color (YEL,AMB,STR) YEL Urine Clarity (CLEAR) HAZY H Urine pH (5.0 - 8.0) 6.0 Ur Specific Casey (1.001 - 1.035) 1.015 Urine Protein (NEG,<30 MG/DL) TRACE H Urine Ketones (NEG) 15 H Urine Nitrite (NEG) NEG Urine Bilirubin (NEG) NEG Urine Urobilinogen (0.1 - 1.0 EU/dl) 0.2 Ur Leukocyte Esterase (NEG) NEG Ur Microscopic SEDIMENT EXAMINED Urine RBC (0 - 5 /HPF) 50-75 H Urine WBC (0 - 2 /HPF) RARE Urine Hemoglobin (NEG) LARGE H Urine Glucose (N MG/DL) 100 H 06/27 1647 Chemistry Sodium (137 - 145 mmol/L) 131 L Potassium (3.5 - 5.1 mmol/L) 3.1 L Chloride (98 - 107 mmol/L) 97 L Carbon Dioxide (22 - 30 mmol/L) 20 L Anion Gap (5 - 16) 13 BUN (9 - 20 mg/dL) 15 Creatinine (0.7 - 1.2 mg/dL) 0.7 Estimated GFR (>60 ml/min) > 60 BUN/Creatinine Ratio (7 - 25 %) 21.4 Glucose (65 - 99 mg/dL) 170 H Hemoglobin A1c (4.2 - 5.8 %) 4.6 Calcium (8.4 - 10.2 mg/dL) 9.1 Total Bilirubin (0.2 - 1.3 mg/dL) 1.3 AST (17 - 59 U/L) 54 ALT (21 - 72 U/L) 31 Alkaline Phosphatase (< 127 U/L) 56 Troponin I (<0.11 ng/ml) 0.03 Total Protein (6.3 - 8.2 g/dL) 6.2 L Albumin (3.5 - 5.0 g/dL) 3.8 Globulin (1.9 - 4.2 gm/dL) 2.4 Albumin/Globulin Ratio (1.1 - 2.2 %) 1.6 TSH &T3 &Free T4 Intrp (0.27 - 4.20 uIU/mL) 0.666 Coagulation PT (9.4 - 12.5 SEC) 14.2 H INR (0.90 - 1.17) 1.36 H APTT (25 - 37 SEC) 29 Hematology CBC w Diff NO MAN DIFF REQ WBC (4.8 - 10.8 /CUMM) 13.7 H RBC (4.70 - 6.10 /CUMM) 3.88 L Hgb (14.0 - 18.0 G/DL) 12.2 L Hct (42 - 52 %) 35.2 L MCV (80.0 - 94.0 FL) 90.8 MCH (27.0 - 31.0 PG) 31.3 H RDW (11.5 - 14.5 %) 12.9 Plt Count (130 - 400 /CUMM) 232 MPV (7.4 - 10.4 FL) 8.2 Gran % (42.2 - 75.2 %) 89.3 H Lymphocytes % (20.5 - 51.1 %) 4.8 L Monocytes % (1.7 - 9.3 %) 5.6 Eosinophils % (0 - 5 %) 0 Basophils % (0.0 - 2.0 %) 0.3 Absolute Granulocytes (1.4 - 6.5 /CUMM) 12.2 H Absolute Lymphocytes (1.2 - 3.4 /CUMM) 0.7 L Absolute Monocytes (0.10 - 0.60 /CUMM) 0.8 H Absolute Eosinophils (0.0 - 0.7 /CUMM) 0 Absolute Basophils (0.0 - 0.2 /CUMM) 0 PUBS MCHC (33.0 - 37.0 G/DL) 34.5 Toxicology Acetone Level (NEGATIVE) NEGATIVE A/P; 71 y/o M with pmh sig for hypertension, PE (in , it was a provoked PE and he remained on anticoagulation for 6 months), A. fib on Eliquis (held for 3 days for this recent surgery) , osteoarthritis, right rotator cuff arthropathy and recent right total shoulder arthroplasty, admitted with new onset shortness of breath and found to have acute PE. Patient also had difficulty urinating with some urinary retention. Patient was admitted to telemetry with a diagnosis of acute PE. Will obtain an echocardiogram to make sure there is no right heart strain. CAT scan was negative for elevated right heart pressures. Patient was started on heparin drip initially and now has been switched to his request. Recommended operative so negative, will obtain right upper extremity Doppler ultrasound just to make sure that the source of PE was not his right upper extremity. Urology will be consulted. Patient has a Martinez catheter. We'll try to taper his oxygen. If patient is hemodynamically stable with no further requirement of oxygen, he can be possible discharge tomorrow. Will have to follow up with urology about the urinary retention. DVT Px; Eliquis.
--- NOTE | 2016-06-28 13:21 | Cons- Orthopedic ---
General Information and HPI Consulting Request Date of Consult: 06/28/16 Requested By: BULL PAUL,LORRIE Reason for Consult: s/p right reverse total shoulder arthroplasty 3 days ago History of Present Illness: 71yo RHD male POD#3 right reverse total shoulder arthroplasty. He was admitted overnight following surgery and discharged home the following day in good condition. On POD#2, he developed urinary frequency and was seen in an urgent care and prescribed Macrobid for presumed UTI. After starting the antibiotic, he says he developed urinary retention and pain associated with a full bladder. He subsequently had chest palpitations and shortness of breath which he initially attributed to bladder-related pain, but when pain did not subside his called 911. On presentation to the ED, a CT scan was performed and he was found to have a PE. He was admitted and started on a heparin drip. Today, Mr. Rizo denies right shoulder pain or chest pain. He is currently on O2 via nasal cannula but denies shortness of breath. Resting comfortably. See catheter placed. Plan to transition back to oral anti-coagulation. Evaluation by Dr. Collier (cards) and Dr. Nixon (urology) pending. Patient hopign for discharge home today or tomorrow. Allergies/Medications Allergies: Coded Allergies: No Known Allergies (06/18/16) Home Med List: Amlodipine Besylate 10 MG TABLET 1 TAB PO DAILY HTN (Reported) Apixaban (Eliquis) 5 MG TABLET 1 TAB PO BID A FIB (Reported) Hydrochlorothiazide 12.5 MG TABLET 1 TAB PO DAILY HTN (Reported) Metoprolol Succ XL (Toprol XL) 100 MG TAB.ER.24H 1 TAB PO DAILY A FIB ( Reported) Pantoprazole Sodium (Protonix) 40 MG TABLET.DR 1 TAB PO BID GERD (Reported) Quinapril HCl (Accupril) 40 MG TABLET 1 TAB PO DAILY HTN (Reported) Current Medications: Current Medications Sig/Crow Start time Last Medication Dose Route Stop Time Status Admin Acetaminophen 650 MG Q6-PRN PRN 06/28 1030 AC PO Albuterol Sulfate 3 ML ONCE ONE 06/27 2044 DC 06/27 INH 06/27 Albuterol Sulfate 3 ML ONCE ONE 06/27 1830 DC 06/27 INH 06/27 Apixaban 5 MG BID 06/28 1000 AC 06/28 PO 1029 Heparin Sodium 3,440 UNIT ONCE ONE 06/28 0530 DC 06/28 (Porcine) IV 06/28 0531 0656 Heparin Sodium 0 .STK-MED ONE 06/27 2141 DC (Porcine) .ROUTE Heparin Sodium 5,000 UNIT ONCE ONE 06/27 2044 DC (Porcine) IV 06/27 2045 Heparin Sodium 25,000 UNIT Q24H 06/27 2044 DC (Porcine) IV Sodium Chloride 500 ML Ipratropium Lowman 2.5 ML ONCE ONE 06/27 1830 DC 06/27 INH 06/27 183 183 Magnesium Oxide 400 MG ONE ONE 06/28 0915 DC 06/28 PO 06/28 0916 1029 Metoprolol Tartrate 50 MG BID 06/28 1000 AC 06/28 PO 0857 Omeprazole 40 MG DAILY AC 06/28 0724 AC 06/28 PO 0840 Potassium Chloride 40 MEQ ONCE ONE 06/28 0915 DC 06/28 PO 06/28 0916 1029 Potassium Chloride 0 .STK-MED ONE 06/27 1921 DC PO Potassium Chloride 40 MEQ ONCE ONE 06/27 1715 DC 06/27 PO 06/27 1716 1938 Past History Medical History Neurological: NONE EENT: NONE Cardiovascular: AFIB, hypertension Respiratory: NONE Gastrointestinal: NONE Hepatic: NONE Renal: NONE Musculoskeletal: osteoarthritis Psychiatric: NONE Endocrine: NONE Blood Disorders: NONE Cancer(s): melanoma Surgical History Pertinent Surgical History: hernia repair-incisional Psychosocial History Where Do You Live? Home Who Do You Live With? family Services at Home: None Smoking Status: Never Smoked ETOH Use: denies use Illicit Drug Use: denies illicit drug use Functional Ability ADLs Independent: dressing, eating, toileting, bathing. Ambulation: independent Employment History Employment: Retired Profession/Employer: [employer] Exam & Diagnostic Data Vital Signs and I&O Vital Signs Date Time Temp Pulse Resp B/P B/P Pulse O2 O2 Flow FiO2 Mean Ox Delivery Rate 06/28 0857 86 136/92 06/28 0817 Nasal 3.0L Cannula 06/28 0803 98.4 86 18 136/92 94 Room Air 06/28 0021 99.4 83 18 93 Nasal Cannula 06/28 0000 Nasal 3.0L Cannula 06/27 2150 98.9 100 18 121/75 93 Nasal 3.0L Cannula 06/28 2051 94 Nasal 3.0L Cannula 06/27 1641 99.7 115 20 131/87 91 Nasal 2.0L Cannula 06/27 1640 93 Nasal 4.0L Cannula Intake & Output 06/28 0800 06/28 0000 06/27 1600 06/27 0800 06/27 0000 Intake Total 820 160 Output Total 1300 1450 3800 Balance -480 -1290 -3800 Intake, IV 120 160 Intake, Oral 700 Output, Urine 1300 1450 3800 Patient 190 lb Weight Weight Reported by Patient Measurement Method Physical Exam: Patient seen and examined. Resting comfortably in bed. O2 via nasal cannula; no shortness of breath or increased work of breathing noted. See cather placed. RUE: Dressing changed today. Incision clean, dry, intact. No surrounding cellulitis or drainage. Ecchymosis of right upper arm, expected. Intact elbow flexion/extension, wrist flexion/extension, zipper setter. Sensation intact to light touch Ax/M/U/R nerve distribution Palpable radial pulse. Imaging Results: CT scan chest (06/27/16): Assessment/Plan Assessment/Plan 71yo M POD#3 right reverse total shoulder arthroplasty; readmitted yesterday with PE. Currently stable, on 3L O2 with stable vitals. Plan to transition from heparin drip back to Eliquis. Urology consult pending for see removal/urinary retention. 1. NWB RUE; ultrasling 2. Pain control - patient not requiring much medication for shoulder 3. OT for elbow, wrist, hand ROM 4. Recommend ultrasound of RUE to evaluate for clot. 5. Appreciate medical management of patient's PE per medicine and cardiology services. 6. Appreciate Urology recommendations. Plan for follow up in clinic as scheduled for right shoulder. Consult Acknowledgment - Thank you for your consult request. Attending MD Review Statement Attending Statement Attending MD Statement: examined this patient, discuss w/resident/PA/TEAM MEMBER, discussed with family, reviewed images
--- NOTE | 2016-06-28 13:59 | Patient Discharge Instructions ---
Discharge Instructions General Discharge Information You were seen/treated for: Pulmonary Embolism Special Instructions: 1. Please follow-up with your primary care provider after discharge by friday ( 07/01/2016). Continue taking the Elliquis 10 mg twice daily till end of 07/06, then switch to 5mg twice daily. 2. Please follow-up with your umbrella mender after discharge 3. Please follow-up with Dr. Nixon after discharge 4. we are holding your blood pressure medications as your blood pressure has been normal in hospital. please follow up with your PCP on friday (07/01/2016) or Dr. Collier about this and if there is need to restart any of them. 5. Dr Nixon wants you to go home with the see in place, please contact him on friday (07/01) for further instructions on when to remove the see. Diet Continue normal diet: Yes Activity Full Activity/No Limits: No Acute Coronary Syndrome Inclusion Criteria At DC or during hospital stay patient has or had the following: ACS DIAGNOSIS No Discharge Core Measures Meds if any: Prescribed or Continued at Discharge Meds if any: NOT Prescribed or Continued at Discharge Congestive Heart Failure Inclusion Criteria At DC or during hospital stay patient has or had the following: CHF DIAGNOSIS No Discharge Core Measures Meds if any: Prescribed or Continued at Discharge Meds if any: NOT Prescribed or Continued at Discharge Cerebrovascular accident Inclusion Criteria At DC or during hospital stay patient has or had the following: CVA/TIA Diagnosis No Discharge Core Measures Meds if any: Prescribed or Continued at Discharge Meds if any: NOT Prescribed or Continued at Discharge Venous thromboembolism Inclusion Criteria VTE Diagnosis No VTE Type NONE VTE Confirmed by (Test) NONE Discharge Core Measures - Per Current guidelines, there needs to be overlap - treatment for the first 5 days of Warfarin therapy. - If discharged on Warfarin prior to 5 days of - overlap therapy, the patient will need to be - assessed for post discharge needs including - *Post discharge parental anticoagulation - *Warfarin and/or parental anticoagulation education - *Follow up date to check INR post discharge At least 5 days overlap therapy as Inpatient No Meds if any: Prescribed or Continued at Discharge Note: Overlap Therapy is Warfarin and Anticoagulant Meds if any: NOT Prescribed or Continued at Discharge
--- NOTE | 2016-06-28 15:33 | ULTRASOUND REPORT ---
EXAMINATION: RIGHT UPPER EXTREMITY VENOUS ULTRASOUND CLINICAL INFORMATION: History of PE status post right shoulder replacement COMPARISON: None. TECHNIQUE: Doppler spectral analysis and color flow Doppler imaging was performed of the right upper extremity. Compression and augmentation maneuvers were performed. FINDINGS: The right internal jugular vein, subclavian vein, axillary vein, brachial vein, basilic vein, cephalic vein, and visualized forearm veins were well-identified and normal. They demonstrate normal compressibility and color fill-in. IMPRESSION: No evidence for right upper extremity deep vein thrombosis.
--- NOTE | 2016-06-28 16:02 | Cons- Urology ---
General Information and HPI Consulting Request Date of Consult: 06/28/16 Requested By: LORRIE GOTTLIEB MD Reason for Consult: hematuria/bph Source of Information: patient, family, old records History of Present Illness: 71 yr old with retention, admitted for s/s PE: on anticoagulation. Pt with long hx BPH symptoms and relieved now with see. discussed likely need for TURP in future. Allergies/Medications Allergies: Coded Allergies: No Known Allergies (06/30/16) Home Med List: Apixaban (Eliquis) 5 MG TABLET 1 TAB PO BID A FIB TAKE 2 TABLETS (10MG) TWICE DAILY FOR 7 DAYS (TILL THE END OF 07/06) THEN 1 TABLET BY MOUTH TWICE DAILY TEHERAFTER Metoprolol Succ XL (Toprol XL) 100 MG TAB.ER.24H 1 TAB PO DAILY A FIB ( Reported) Pantoprazole Sodium (Protonix) 40 MG TABLET.DR 1 TAB PO BID GERD (Reported) Current Medications: Current Medications Sig/Crow Start time Last Medication Dose Route Stop Time Status Admin Acetaminophen 650 MG Q6-PRN PRN 06/28 1030 AC PO Albuterol Sulfate 3 ML ONCE ONE 06/275 DC 06/27 INH 06/27 2045 2043 Albuterol Sulfate 3 ML ONCE ONE 06/27 1830 DC 06/27 INH 06/27 183 1832 Apixaban 5 MG BID 06/28 1000 AC 06/28 PO 1029 Heparin Sodium 3,440 UNIT ONCE ONE 06/28 0530 DC 06/28 (Porcine) IV 06/28 0531 0656 Heparin Sodium 0 .STK-MED ONE 06/27 2142 DC (Porcine) .ROUTE Heparin Sodium 5,000 UNIT ONCE ONE 06/27 2044 DC (Porcine) IV 06/27 2045 Heparin Sodium 25,000 UNIT Q24H 06/27 2044 DC (Porcine) IV Sodium Chloride 500 ML Ipratropium [place] 2.5 ML ONCE ONE 06/27 1830 DC 06/27 INH 06/27 1830 1832 Magnesium Oxide 400 MG ONE ONE 06/28 0915 DC 06/28 PO 06/28 0916 1029 Metoprolol Tartrate 50 MG BID 06/28 1000 AC 06/28 PO 0857 Omeprazole 40 MG DAILY AC 06/28 0724 AC 06/28 PO 0840 Patient Medication 1 ED .STK-MED ONE 06/28 1354 DC Teaching ED 06/28 1355 Potassium Chloride 40 MEQ ONCE ONE 06/28 0915 DC 06/28 PO 06/28 0916 1029 Potassium Chloride 0 .STK-MED ONE 06/27 1921 DC PO Potassium Chloride 40 MEQ ONCE ONE 06/27 1715 DC 06/27 PO 06/27 171 1938 Past History Medical History Neurological: NONE EENT: NONE Cardiovascular: AFIB, hypertension Respiratory: NONE Gastrointestinal: NONE Hepatic: NONE Renal: NONE Musculoskeletal: osteoarthritis Psychiatric: NONE Endocrine: NONE Blood Disorders: NONE Cancer(s): melanoma Surgical History Pertinent Surgical History: hernia repair-incisional Psychosocial History Where Do You Live? Home Who Do You Live With? family Services at Home: None Smoking Status: Never Smoked ETOH Use: denies use Illicit Drug Use: denies illicit drug use Functional Ability ADLs Independent: dressing, eating, toileting, bathing. Ambulation: independent Employment History Employment: Retired Profession/Employer: [employer] Retired? yes Review of Systems Review of Systems Constitutional: Denies: no symptoms. EENTM: Denies: no symptoms. Cardiovascular: Denies: no symptoms. Respiratory: Denies: no symptoms. GI: Denies: no symptoms. Genitourinary: Reports: see HPI, hematuria. Skin: Denies: no symptoms. Exam & Diagnostic Data Vital Signs and I&O Vital Signs Date Time Temp Pulse Resp B/P B/P Pulse O2 O2 Flow FiO2 Mean Ox Delivery Rate 06/28 0857 86 136/92 06/28 0817 Nasal 3.0L Cannula 06/28 0803 98.4 86 18 136/92 94 Room Air 06/28 0021 99.4 83 18 93 Nasal Cannula 06/28 0000 Nasal 3.0L Cannula 06/27 2151 98.9 100 18 121/75 93 Nasal 3.0L Cannula 06/27 2052 94 Nasal 3.0L Cannula 06/27 1642 99.7 115 20 131/87 91 Nasal 2.0L Cannula 06/27 1641 93 Nasal 4.0L Cannula Intake & Output 06/28 1600 06/28 0800 06/28 0000 06/27 1600 06/27 0800 06/27 0000 Intake Total 820 160 Output Total 1300 1450 3800 Balance -480 -1290 -3800 Intake, IV 120 160 Intake, Oral 700 Output, Urine 1300 1450 3800 Patient 190 lb Weight Weight Reported by Patient Measurement Method Physical Exam General Appearance: well developed/nourished Head: atraumatic Eyes: Bilateral: normal appearance. Respiratory: normal breath sounds Cardiovascular: regular rate/rhythm Gastrointestinal: normal bowel sounds Rectal: normal exam Back: no vertebral tenderness Reproductive: Normal male genitalia Last 24 Hours of Labs: Laboratory Tests 06/28 06/27 0350 1744 Chemistry Sodium (137 - 145 mmol/L) 138 Potassium (3.5 - 5.1 mmol/L) 3.5 Chloride (98 - 107 mmol/L) 104 Carbon Dioxide (22 - 30 mmol/L) 24 Anion Gap (5 - 16) 9 BUN (9 - 20 mg/dL) 10 Creatinine (0.7 - 1.2 mg/dL) 0.7 Estimated GFR (>60 ml/min) > 60 BUN/Creatinine Ratio (7 - 25 %) 14.3 Glucose (65 - 99 mg/dL) 98 Calcium (8.4 - 10.2 mg/dL) 8.8 Magnesium (1.6 - 2.3 mg/dL) 1.9 Total Bilirubin (0.2 - 1.3 mg/dL) 1.1 AST (17 - 59 U/L) 42 ALT (21 - 72 U/L) 35 Alkaline Phosphatase (< 127 U/L) 49 Troponin I (<0.11 ng/ml) 0.04 Total Protein (6.3 - 8.2 g/dL) 5.3 L Albumin (3.5 - 5.0 g/dL) 3.1 L Globulin (1.9 - 4.2 gm/dL) 2.2 Albumin/Globulin Ratio (1.1 - 2.2 %) 1.4 Coagulation APTT (25 - 37 SEC) 52 H Hematology CBC w Diff NO MAN DIFF REQ WBC (4.8 - 10.8 /CUMM) 8.1 RBC (4.70 - 6.10 /CUMM) 3.55 L Hgb (14.0 - 18.0 G/DL) 11.1 L Hct (42 - 52 %) 31.9 L MCV (80.0 - 94.0 FL) 89.8 MCH (27.0 - 31.0 PG) 31.1 H RDW (11.5 - 14.5 %) 13.2 Plt Count (130 - 400 /CUMM) 191 MPV (7.4 - 10.4 FL) 8.0 Gran % (42.2 - 75.2 %) 72.1 Lymphocytes % (20.5 - 51.1 %) 18.5 L Monocytes % (1.7 - 9.3 %) 8.8 Eosinophils % (0 - 5 %) 0.2 Basophils % (0.0 - 2.0 %) 0.4 Absolute Granulocytes (1.4 - 6.5 /CUMM) 5.8 Absolute Lymphocytes (1.2 - 3.4 /CUMM) 1.5 Absolute Monocytes (0.10 - 0.60 /CUMM) 0.7 H Absolute Eosinophils (0.0 - 0.7 /CUMM) 0 Absolute Basophils (0.0 - 0.2 /CUMM) 0 PUBS MCHC (33.0 - 37.0 G/DL) 34.7 Urines Urine Color (YEL,AMB,STR) YEL Urine Clarity (CLEAR) HAZY H Urine pH (5.0 - 8.0) 6.0 Ur Specific [place] (1.001 - 1.035) 1.015 Urine Protein (NEG,<30 MG/DL) TRACE H Urine Ketones (NEG) 15 H Urine Nitrite (NEG) NEG Urine Bilirubin (NEG) NEG Urine Urobilinogen (0.1 - 1.0 EU/dl) 0.2 Ur Leukocyte Esterase (NEG) NEG Ur Microscopic SEDIMENT EXAMINED Urine RBC (0 - 5 /HPF) 50-75 H Urine WBC (0 - 2 /HPF) RARE Urine Hemoglobin (NEG) LARGE H Urine Glucose (N MG/DL) 100 H 06/27 1647 Chemistry Sodium (137 - 145 mmol/L) 131 L Potassium (3.5 - 5.1 mmol/L) 3.1 L Chloride (98 - 107 mmol/L) 97 L Carbon Dioxide (22 - 30 mmol/L) 20 L Anion Gap (5 - 16) 13 BUN (9 - 20 mg/dL) 15 Creatinine (0.7 - 1.2 mg/dL) 0.7 Estimated GFR (>60 ml/min) > 60 BUN/Creatinine Ratio (7 - 25 %) 21.4 Glucose (65 - 99 mg/dL) 170 H Hemoglobin A1c (4.2 - 5.8 %) 4.6 Calcium (8.4 - 10.2 mg/dL) 9.1 Total Bilirubin (0.2 - 1.3 mg/dL) 1.3 AST (17 - 59 U/L) 54 ALT (21 - 72 U/L) 31 Alkaline Phosphatase (< 127 U/L) 56 Troponin I (<0.11 ng/ml) 0.03 Total Protein (6.3 - 8.2 g/dL) 6.2 L Albumin (3.5 - 5.0 g/dL) 3.8 Globulin (1.9 - 4.2 gm/dL) 2.4 Albumin/Globulin Ratio (1.1 - 2.2 %) 1.6 TSH &T3 &Free T4 Intrp (0.27 - 4.20 uIU/mL) 0.666 Coagulation PT (9.4 - 12.5 SEC) 14.2 H INR (0.90 - 1.17) 1.36 H APTT (25 - 37 SEC) 29 Hematology CBC w Diff NO MAN DIFF REQ WBC (4.8 - 10.8 /CUMM) 13.7 H RBC (4.70 - 6.10 /CUMM) 3.88 L Hgb (14.0 - 18.0 G/DL) 12.2 L Hct (42 - 52 %) 35.2 L MCV (80.0 - 94.0 FL) 90.8 MCH (27.0 - 31.0 PG) 31.3 H RDW (11.5 - 14.5 %) 12.9 Plt Count (130 - 400 /CUMM) 232 MPV (7.4 - 10.4 FL) 8.2 Gran % (42.2 - 75.2 %) 89.3 H Lymphocytes % (20.5 - 51.1 %) 4.8 L Monocytes % (1.7 - 9.3 %) 5.6 Eosinophils % (0 - 5 %) 0 Basophils % (0.0 - 2.0 %) 0.3 Absolute Granulocytes (1.4 - 6.5 /CUMM) 12.2 H Absolute Lymphocytes (1.2 - 3.4 /CUMM) 0.7 L Absolute Monocytes (0.10 - 0.60 /CUMM) 0.8 H Absolute Eosinophils (0.0 - 0.7 /CUMM) 0 Absolute Basophils (0.0 - 0.2 /CUMM) 0 PUBS MCHC (33.0 - 37.0 G/DL) 34.5 Toxicology Acetone Level (NEGATIVE) NEGATIVE Assessment/Plan Assessment/Plan hematuria: sent urine for cytology: recommend REnal US/kub xray or abd/pelvic CT scan to evaluate upper tracts. Copies To: BLAKE CARPIO MD Consult Acknowledgment - Thank you for your consult request. Attending MD Review Statement Attending Statement Attending MD Statement: examined this patient, discuss w/resident/PA/MITERING MACHINE OPERATOR Attending Assessment/Plan: pt with long hx bph: will need flomax 0.4mg/hs: keep see for several days-may DC home with see and f/u as outpt.
--- NOTE | 2016-06-28 16:10 | Discharge Summary ---
See Addendum Visit Information Visit Dates Admission Date: 06/27/16 Discharge Date: 06/29/16 Hospital Course Course Attending Physician: BULL PAUL,LORRIE Primary Care Physician: ADAM VAN DO Consulting Request: Consulting Specialty: Urology Hospital Course: He is 71-year-old man with past medical history of hypertension, PE, A. fib on Eliquis , osteoarthritis, right rotator cuff arthropathy and recent right total shoulder arthroplasty on 06/25/[address] Tadeo and History of Perez's esophagus BIBA from home with complaint of shortness of breath and difficulty urinating. When he came to ER his temperature was 99.7 pulse 115, respiratory rate 20, blood pressure 131/87 and oxygen saturation was 85% on room air. He was placed on 4 L of oxygen via nasal cannula. See catheter was also placed in. CTA was done and foumd to have a small right upper lobe pulmonary emboli and there was no evidence of elevated right heart pressure. He was started on IV heparin drip and transferred to telemetry floor. 1. New small RUL PE He was initially on IV heparin drip and later on he was switched back to Eliquis but on pulmonary embolism protocol (Eliquis 10 mg 2x daily for 7 days and then dose decreased to 5 mg 2x daily). Initially his antihypertensives were held because of normal blood pressure. He was seen by poultry farmer meat, Dr. Collier. On discharge his beta zulema was continued and his CORBY inhibitor and calcium channel zulema were restarted. Cardiac recommended to hold off on restarting his diuretics until his urologic issues were addressed. Doppler venous ultrasound of lower extremities was negative for DVT. 2. Urinary retention According to patient he saw Dr. Nixon for his urinary retention once 7 years ago. In ER See catheter was placed in and later on Dr. Nixon was contacted. Patient also had history of BPH. According to his recommendations urine was sent for cytology. Patient was started on Flomax. Dr. Nixon also recommended to keep See in for several days, discharge home with See and follow-up with him in his office. 3. Recent right shoulder total Arthroplasty He was also seen by Dr. Tadeo who recommended ultrasound of right upper extremity to evaluate for clot. Doppler venous ultrasound of right upper extremity was done that showed no evidence of DVT. He recommended to continue right upper extremity UltraSling, occupational therapy for elbow and wrist and hand and follow-up in clinic as outpatient. Allergies: Coded Allergies: No Known Allergies (06/30/16) Disposition Summary Disposition Principal Diagnosis: Right upper lobe pulmonary emboli. Additional Diagnosis: Urinary retention status post See catheter placement. Discharge Disposition: home or self care Discharge Instructions General Discharge Information Code Status: Full Code Patient's Diet: regular Patient's Activity: independent Follow-Up Instructions/Appts: 1. Please follow-up with your primary care provider after discharge by friday ( 07/01/2016). Continue taking the Elliquis 10 mg twice daily till end of 07/06, then switch to 5mg twice daily. 2. Please follow-up with your poultry farmer meat after discharge 3. Please follow-up with Dr. Nixon after discharge 4. we are holding your blood pressure medications as your blood pressure has been normal in hospital. please follow up with your PCP on friday (07/01/2016) or Dr. Collier about this and if there is need to restart any of them. 5. Dr Nixon wants you to go home with the see in place, please contact him on friday (07/01) for further instructions on when to remove the see. Medications at Discharge Discharge Medications: Stop taking the following medications: Quinapril HCl (Accupril) 40 MG TABLET ORAL DAILY Hydrochlorothiazide (Hydrochlorothiazide) 12.5 MG TABLET ORAL DAILY Amlodipine Besylate (Amlodipine Besylate) 10 MG TABLET ORAL DAILY Continue taking these medications: Pantoprazole Sodium (Protonix) 40 MG TABLET. 1 Tablet ORAL TWICE DAILY Comments: Last Taken: 06/29/16 Time: 7:15 AM PRILOSEC GIVEN Metoprolol Succ XL (Toprol XL) 100 MG TAB.ER.24H 1 Tablet ORAL DAILY Comments: Last Taken: 06/29/16 Time: 10:00 AM 50 MG GIVEN Apixaban (Eliquis) 5 MG TABLET 1 Tablet ORAL TWICE DAILY Days = 30 Instructions: TAKE 2 TABLETS (10MG) TWICE DAILY FOR 7 DAYS (TILL THE END OF 07/06) THEN 1 TABLET BY MOUTH TWICE DAILY TEHERAFTER Comments: Last Taken: 06/29/16 Time: 6:30 PM This prescription has been renewed Copies To: ADAM VAN DO
[2016-06-28 16:12] VITALS: BP 130/90
--- NOTE | 2016-06-28 18:21 | Cons- Cardiology ---
General Information and HPI Consulting Request Date of Consult: 06/28/16 Requested By: LORRIE GOTTLIEB MD Reason for Consult: Atrial fibrillation with a rapid ventricular response. Source of Information: patient, old records Exam Limitations: no limitations History of Present Illness: Mr. Naif Mcelroy is a 71-year-old male with a history of hypertension, dyslipidemia, atrial fibrillation, DVT after left knee surgery, who underwent right reverse total shoulder arthroplasty on 06/25/2016 and was discharged home the following day in stable condition. On POD#2, he developed urinary frequency and was seen in an urgent care facility and placed on Macrobid for a presumed UTI. He then developed urinary retention and abdominal pain secondary to be distended bladder. Subsequent to this he developed palpitations and shortness of breath that he initially attributed to bladder-related pain and anxiety, but when he continued to feel poorly he came to be [facility] ED for further evaluation/management. 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 A CTA was also performed that revealed evidence of a small pulmonary embolism and, as such, he was placed on a heparin drip. At present he is without complaints and feels improved overall. Allergies/Medications Allergies: Coded Allergies: No Known Allergies (06/18/16) Home Med List: Amlodipine Besylate 10 MG TABLET 1 TAB PO DAILY HTN (Reported) Apixaban (Eliquis) 5 MG TABLET 1 TAB PO BID A FIB (Reported) Hydrochlorothiazide 12.5 MG TABLET 1 TAB PO DAILY HTN (Reported) Metoprolol Succ XL (Toprol XL) 100 MG TAB.ER.24H 1 TAB PO DAILY A FIB ( Reported) Pantoprazole Sodium (Protonix) 40 MG TABLET.DR 1 TAB PO BID GERD (Reported) Quinapril HCl (Accupril) 40 MG TABLET 1 TAB PO DAILY HTN (Reported) Review of Systems Review of Systems: A 14 point system review was obtained and was noncontributory, other than as above. Past History Travel History Traveled to [place] past 21 day No Medical History Neurological: NONE EENT: NONE Cardiovascular: AFIB, hypertension Respiratory: NONE Gastrointestinal: NONE Hepatic: NONE Renal: NONE Musculoskeletal: osteoarthritis Psychiatric: NONE Endocrine: NONE Blood Disorders: NONE Cancer(s): melanoma Surgical History Surgical History: hernia repair-incisional Psychosocial History Where Do You Live? Home Who Do You Live With? family Services at Home: None Smoking Status: Never Smoked ETOH Use: denies use Illicit Drug Use: denies illicit drug use Functional Ability ADLs Independent: dressing, eating, toileting, bathing. Ambulation: independent Employment History Employment: Retired Profession/Employer [employer] Exam & Diagnostic Data Vital Signs and I&O Vital Signs Date Time Temp Pulse Resp B/P B/P Pulse O2 O2 Flow FiO2 Mean Ox Delivery Rate 06/28 1612 98.1 82 20 130/90 93 Room Air 06/28 0857 86 136/92 06/28 0817 Nasal 3.0L Cannula 06/28 0803 98.4 86 18 136/92 94 Room Air 06/28 0800 94 Nasal 3.0L Cannula 06/28 0021 99.4 83 18 93 Nasal Cannula 06/28 0000 Nasal 3.0L Cannula 06/27 2151 98.9 100 18 121/75 93 Nasal 3.0L Cannula 06/27 2052 94 Nasal 3.0L Cannula Intake & Output 06/28 1600 06/28 0800 06/28 0000 06/27 1600 06/27 0800 06/27 0000 Intake Total 1120 160 Output Total 1750 1450 3800 Balance -630 -1290 -3800 Intake, IV 120 160 Intake, Oral 1000 Output, Urine 1750 1450 3800 Patient 190 lb Weight Weight Reported by Patient Measurement Method Physical Exam: Well-developed, well-nourished elderly male in no acute distress. Vital signs: See above. HEENT: Normocephalic, atraumatic, EOMI, slightly dry mucous membranes. Neck: No JVD, no bruits. Lungs: Clear to auscultation bilaterally. Heart: S1, S2 with soft (grade 1-2/6) systolic murmur. No gallop or rub. PMI fifth ICS at MCL. Abdomen: Soft, nontender, positive bowel sounds. Extremities: No edema. Peripheral pulses: Symmetrical/intact. 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 Recommendations: * Continue on telemetry. * He was on intravenous heparin and needs to be switched over to oral anticoagulation. He had been on Eliquis 5 mg 2x daily for his atrial fibrillation, but should be placed on pulmonary embolism protocol with Eliquis 10 mg 2x daily for 7 days and then have this decreased to 5 mg 2x daily. * Would also continue him on beta zulema therapy for control of the ventricular response to his atrial fibrillation with metoprolol 50 mg 2x daily. * Would restart his CORBY inhibitor and dihydropyridine calcium channel antagonist as needed for control of his hypertension. * Would hold off on restarting his diuretics until his urologic issues have been addressed. * DVT prophylaxis being addressed by full anticoagulation for his chronic atrial fibrillation and recent postoperative pulmonary embolism. Further recommendations will follow, Thank you. Consult Acknowledgment - Thank you for your consult request.
[2016-06-28] MEDS ORDERED: QUINAPRIL HCL40 M1 PO (18:56)
--- NOTE | 2016-06-28 22:59 | NUR ---
DRY GAUZE DRESSING REAPPLIED TO R SHOULDER AFTER COMPLETION OF SHOWER. STERI-STRIPS AND SUTURES INTACT.
[2016-06-28 23:41] VITALS: BP 120/86
--- NOTE | 2016-06-29 08:26 | PN- Housestaff ---
WOLFGANG PAUL,DAVID 06/29/16 0826: Subjective Follow-up For: PE Subjective: Seen and examined at bedside and while ambulating around the hospital hallway, he reports that his feeling better and does not endorse any acute complaints of shortness of breath, chest pain, palpitation, any focal neurological deficit, fever, chills, nausea, vomiting, abdominal pain or dysuria. Review of Systems Constitutional: Reports: see HPI. Objective Last 24 Hrs of Vital Signs/I&O Vital Signs Date Time Temp Pulse Resp B/P B/P Pulse O2 O2 Flow FiO2 Mean Ox Delivery Rate 06/29 1549 98.0 99 18 118/72 93 Room Air 06/29 1011 102 116/80 06/29 1011 102 116/80 06/29 1011 102 116/80 06/29 0924 97.6 102 18 116/80 96 Room Air 06/28 2341 98.7 68 12 120/86 94 Room Air 06/28 2142 91 138/80 06/28 2141 91 138/80 06/28 1802 82 130/90 Intake & Output 06/29 1600 06/29 0800 06/29 0000 Intake Total 100 720 Output Total 249 447 1099 Balance -650 -300 -280 Intake, Oral 100 720 Output, Urine 999 387 3436 Patient 83.461 kg Weight Weight Chair scale Measurement Method Physical Exam General Appearance: Alert, Oriented X3, Cooperative Other Physical Findings: HEENT Mucous Membr. moist/pink Neck Supple Cardiovascular irregularly irregular Lungs Clear to Auscultation Abdomen Normal Bowel Sounds, Soft, No Tenderness Neurological Normal Speech, Sensation Intact, Cranial Nerves 3-12 NL Extremities right arm sling. bandage intact right shoulder Current Medications: Current Medications Sig/Crow Start time Last Medication Dose Route Stop Time Status Admin Acetaminophen 650 MG Q6-PRN PRN 06/28 1030 AC PO Amlodipine Besylate 5 MG DAILY 06/28 1909 AC 06/29 PO 1011 Apixaban 10 MG BID 06/29 1000 DC PO Apixaban 5 MG ONCE ONE 06/28 1899 DC 06/28 PO 06/28 Apixaban 10 MG 0700,1900 06/28 1900 AC 06/29 PO 0717 Apixaban 5 MG ONCE ONE 06/28 1900 CAN PO 06/28 1900 Apixaban 5 MG ONCE ONE 06/28 1814 DC 06/28 PO 05/19 1816 1820 Apixaban 5 MG BID 06/28 1000 DC 06/28 PO 1029 Hydromorphone HCl 1 MG Q6 PRN 06/29 1400 DC IV Ibuprofen 600 MG ONCE ONE 06/28 2230 DC 06/28 PO 06/28 2231 2316 Lisinopril 40 MG DAILY 06/28 1859 DC PO Loratadine 10 MG ONCE ONE 06/28 1615 DC 06/28 PO 06/28 1616 1802 Metoprolol Tartrate 50 MG BID 06/28 1000 AC 06/29 PO 1011 Omeprazole 40 MG DAILY AC 06/28 0724 AC 06/29 PO 0716 Phenol 2 SPRAY Q2P PRN 06/29 1345 AC EXT Potassium Chloride 40 MEQ ONCE ONE 06/29 1015 DC 06/29 PO 06/29 1016 1219 Tamsulosin HCl 0.4 MG DAILY 06/28 1602 AC 06/29 PO 1011 Last 24 Hrs of Lab/Nilson Results Last 24 Hrs of Labs/Mics: Laboratory Tests 06/29/16 0600: Anion Gap 8, Estimated GFR > 60, BUN/Creatinine Ratio 17.5, Magnesium 2.0 Assessment/Plan Assessment: He is 71-year-old man with past medical history of hypertension, PE, A. fib on Eliquis , osteoarthritis, right rotator cuff arthropathy and recent right total shoulder arthroplasty on 06/25/[address] Tadeo. Problem list 1. Right upper lobe pulmonary emboli. Switched from heparin to liquids 10 mg twice a day for 7 days with transitioning to 5 mg twice a day. Patient is stable saturating well and able to ambulate along the hospital hallway with no complaint. Stable for discharge. 2. Urinary retention status post Martinez catheter placement. Could be due to anesthesia effect and decreased mobility after surgery. Reports having same problem after incisional hernia repair 7 years ago. Urine and urine bag is very dark. seems clear.? H/O BPH. not on any meds. No evidence of UTI. Per urology patient is to be discharged with a Martinez and will closely follow up. 3. Leukocytosis on admission. Was reactive 4. History of A. fib. Patient was started on IV heparin drip for PE. He is on metoprolol for rate control 5. History of hypertension on amlodipine, hydrochlorothiazide and quinapril at home. 6. History of Perez's esophagus. On Protonix Problem List: 1. Pulmonary embolus 2. Urinary retention 3. Hypoxia Pain Ratin Pain Location: NONE Pain Goal: Remain pain free Pain Plan: PER PAIN PATHWAY Tomorrow's Labs & Rationales: NONE-DISCHARGE Consulting Request: Consulting Specialty: Urology NASH PAUL,GAN 06/29/16 1314: Attending MD Review Statement Attending Statement Attending MD Statement: examined this patient, discuss w/resident/PA/AUTOMOTIVE DETAILER, agreed w/resident/PA/AUTOMOTIVE DETAILER, discussed with family, reviewed EMR data (avail), discussed with nursing, discussed with case mgmt, reviewed images, amended to note Attending Assessment/Plan: 71-year-old male with past medical history significant for hypertension, hyperlipidemia, a half, will DVT status post left knee surgery, A. fib on Eliquis which has been held for 3 days for his recent surgery, osteoarthritis, right rotator cuff arthroplasty and recent right total shoulder arthroplasty has been admitted with a new onset shortness of breath and found to have acute PE. Besides he was also found to have urinary retention. I have seen and examined on the patient on the bedside along with his . Vision and reported feeling well and wants to be discharged home today. He is currently on 4 medications for his elevated blood pressure which is well controlled at this point. Patient is having a Martinez's catheter which would remain in situ for 4 days and will follow up with the urologist after being discharged. Patient has been started back on Eliquis. Patient does not require oxygen anymore. Currently he is waiting for final recommendations from Dr. Collier regarding his Eliquis dose. He was on 5 mg twice a day for his A. fib and was recommended to increase his dose to 10 mg for the first 7 days and then get back to his previous regimen.
--- NOTE | 2016-06-29 08:35 | PN- Orthopedic ---
Surgical Brief Attending Note Brief Attending Note: Patient seen and examined this morning; doing well, denies pain in shoulder or abdomen. Martinez in place. Weaned off oxygen last night, denies shortness of breath, chest pain, or chest palpitations. Did not sleep well due to noise in hospital. Exam: Dressing to right shoulder clean, dry, intact Ecchymosis to right upper arm Arm soft, compressible, non-tender Intact elbow flexion/extension, wrist flexion/extension, steel hanger Sensation intact to light touch Ax/M/U/R nerve distributions Palpable radial pulse, hand warm and well-perfused A/P: 71yo M POD#4 R reverse total shoulder arthroplasty; admitted from home on POD#2 following urinary retention, afib with RVR, and small PE. Martinez was placed ; he was initially started on heparin drip but plan to transition back to Eliquis (increase dose). Currently stable and feeling good; no events on telemetry. Seen by Urology and Cardiology. 1. NWB RUE, ultrasling 2. Dry dressing to incision 3. OT for elbow, wrist, hand ROM 4. Appreciate Cardiology and Urology recommendations and care 5. Plan for follow up in clinic as scheduled.
[2016-06-29 09:24] VITALS: BP 116/80
[2016-06-29] MEDS ORDERED: ELIQUIS5 M1 PO (15:03)
[2016-06-29 15:49] VITALS: BP 118/72
[2016-07-25] MEDS ORDERED: QUINAPRIL HCL20 M1 PO (11:15)
[2016-07-25] MEDS ORDERED: AMLODIPINE BESY10 M1 PO (11:15)
== END 2016-06-29 20:00 | DRG 176 ==
LOC: ERH 16:25 → ERHI 19:46 → 1NO 19:46 → ENRESERV 22:06 → 1NO 22:48
PROVIDERS: Internal Medicine; Physician Assistant; ADMIT Internal Medicine
DX: I26.99 Other pulmonary embolism without acute cor pulmonale (principal); I48.91 Unspecified atrial fibrillation; Z86.711 Personal history of pulmonary embolism; Z79.01 Long term (current) use of anticoagulants; I10 Essential (primary) hypertension; M19.90 Unspecified osteoarthritis, unspecified site; R33.8 Other retention of urine; N99.89 Other postprocedural complications and disorders of genitourinary system; K22.70 Barrett's esophagus without dysplasia; Z85.820 Personal history of malignant melanoma of skin; N40.0 Benign prostatic hyperplasia without lower urinary tract symptoms; E78.5 Hyperlipidemia, unspecified; Z86.718 Personal history of other venous thrombosis and embolism
CPT/HCPCS: 1NP; 36415; 81001; 82436; 87086; 88305; 93005; 93010; 93970; 96374; 99291; J1644

== ENCOUNTER 2016-06-30 19:43 | Emergency (ER) | payer OTHER ==
[~2016-06-30] VITALS: Ht 188 cm; Wt 86.2 kg
[~2016-06-30 19:43] MED LIST changes: +QUINAPRIL HCL40 M1 PO
[2016-06-30 19:48] VITALS: BP 147/94
--- NOTE | 2016-06-30 20:28 | ED GI/GU/ABDOMINAL COMPLAINT ---
History of Present Illness General Chief Complaint: Male Genitourinary Problems Stated Complaint: SEE CLOGGED, ABD PAIN AND PRESSURE Source: patient Exam Limitations: no limitations Vital Signs & Intake/Output Vital Signs & Intake/Output Vital Signs Date Time Temp Pulse Resp B/P B/P Pulse O2 O2 Flow FiO2 Mean Ox Delivery Rate 07/01 1947 98.4 100 20 147/94 96 Room Air Allergies Coded Allergies: No Known Allergies (06/30/16) Reconcile Medications Apixaban (Eliquis) 5 MG TABLET 1 TAB PO BID A FIB TAKE 2 TABLETS (10MG) TWICE DAILY FOR 7 DAYS (TILL THE END OF 07/06) THEN 1 TABLET BY MOUTH TWICE DAILY TEHERAFTER Metoprolol Succ XL (Toprol XL) 100 MG TAB.ER.24H 1 TAB PO DAILY A FIB ( Reported) Pantoprazole Sodium (Protonix) 40 MG TABLET.DR 1 TAB PO BID GERD (Reported) Triage Note: TRIAGE: PT TO ER WITH C/C SEE CATHETER WITH NO OUTPUT. STATES WAS FULL THIS MORNING, ONLY DROPS SINCE THEN AND BLOOD IS SEEPING OUT FROM AROUND IT. DENIES ANY PAIN. HAS HAD SEE CATHETER IN PLACE SINCE 06/26 FOR SURGERY (R SHOULDER REPLACEMENT). WAS ALSO DIAGNOSED WITH PULMONARY EMBOLISM AND PARTIALLY COLLAPSED LUNG ON FRIDAY. WAS INPATIENT UNTIL LAST NIGHT. Triage Nurses Notes Reviewed? yes Onset: Abrupt Duration: hour(s): Timing: recent history Quality/Severity: cramping Location: suprapubic Radiation: no radiation Activities at Onset: "I had the see placed just recently" Prior Abdominal Problems: similar symptoms Modifying Factors: Worsens With: urinating. Associated Symptoms: suprapubic pressure/cramping HPI: 71 yo gentleman h/o recent shoulder replacement, h/o PE, h/o urinary retention, presents with a clogged see. He states that it was placed recently, "and everything was fine, but then I stopped urinating around noon today.... it just felt like a pressure.... There were blood clots before because I am on eliquis.... but now I feel the pressure. " No fever, chills, nausea, vomiting, diarrhea, chest pain, dyspnea. His pain is well controlled. Past History Travel History Traveled to [place] past 21 day No Medical History Any Pertinent Medical History? 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 No Review of Systems Review of Systems Constitutional: Reports: no symptoms. EENTM: Reports: no symptoms. Respiratory: Reports: no symptoms. Cardiovascular: Reports: no symptoms. GI: Reports: no symptoms. Genitourinary: Reports: no symptoms. Musculoskeletal: Reports: no symptoms. Skin: Reports: no symptoms. Neurological/Psychological: Reports: no symptoms. Hematologic/Endocrine: Reports: no symptoms. Immunologic/Allergic: Reports: no symptoms. All Other Systems: Reviewed and Negative Physical Exam Physical Exam General Appearance: well developed/nourished, no apparent distress Head: atraumatic Eyes: Bilateral: normal appearance. Ears, Nose, Throat, Mouth: hearing grossly normal Neck: normal inspection Respiratory: chest non-tender Cardiovascular: regular rate/rhythm Gastrointestinal: mild suprapubic pressure to palpation Back: normal inspection Extremities: right arm in brace/splint Neurologic/Psych: no motor/sensory deficits, awake, alert, oriented x 3 Core Measures ACS in differential dx? No Severe Sepsis Present: No Septic Shock Present: No Progress Differential Diagnosis: UTI/pyelo, urinary retention Plan of Care: Orders Procedure Date/time Status See, Insertion/Removal/Asses 07/01 2027 Active CULTURE,URINE 07/01 2027 Active URINALYSIS 07/01 2027 Complete Laboratory Tests 06/30/16 2100: Urinalysis LIGHT H, Urine Color YEL, Urine Clarity CLDY H, Urine pH 6.0, Ur Specific [place] 1.025, Urine Protein 100 H, Urine Ketones NEG, Urine Nitrite NEG, Urine Bilirubin NEG, Urine Urobilinogen 0.2, Ur Leukocyte Esterase NEG, Ur Microscopic SEDIMENT EXAMINED, Urine RBC >75 H, Urine WBC 5-10 H, Ur Epithelial Cells FEW, Urine Bacteria MOD H, Urine Mucus MANY H, Urine Hemoglobin LARGE H, Urine Glucose NEG Microbiology 06/30 2099 URINE ROUT: Urine Culture - RECD Initial ED EKG: none Departure Departure Disposition: HOME OR SELF CARE Condition: Stable Clinical Impression Primary Impression: Urinary retention Referrals: ADAM VAN DO (PCP/Family) Departure Forms: Customer Survey General Discharge Information Comments 06/30/16, 21:36.... pt feeling well.... drained approximately 1 liter. pt has follow up appt with urology tomorrow.
[2016-07-25] MEDS ORDERED: QUINAPRIL HCL20 M1 PO (11:15)
[2016-07-25] MEDS ORDERED: AMLODIPINE BESY10 M1 PO (11:15)
== END 2016-06-30 21:38 ==
LOC: ERH 19:43
DX: R33.9 Retention of urine, unspecified (principal)
CPT/HCPCS: 81001; 87086

== ENCOUNTER 2016-06-30 22:49 | Emergency (ER) | payer OTHER ==
--- NOTE | 2016-06-30 22:56 | ED GI/GU/ABDOMINAL COMPLAINT ---
History of Present Illness General Chief Complaint: Male Genitourinary Problems Stated Complaint: PROBLEM WITH FUENTES Source: patient, family Exam Limitations: no limitations Vital Signs & Intake/Output Vital Signs & Intake/Output Vital Signs Date Time Temp Pulse Resp B/P B/P Pulse O2 O2 Flow FiO2 Mean Ox Delivery Rate 06/30 2252 97.0 110 18 157/107 97 Room Air Allergies Coded Allergies: No Known Allergies (06/30/16) Reconcile Medications Apixaban (Eliquis) 5 MG TABLET 1 TAB PO BID A FIB TAKE 2 TABLETS (10MG) TWICE DAILY FOR 7 DAYS (TILL THE END OF 07/06) THEN 1 TABLET BY MOUTH TWICE DAILY TEHERAFTER Metoprolol Succ XL (Toprol XL) 100 MG TAB.ER.24H 1 TAB PO DAILY A FIB ( Reported) Pantoprazole Sodium (Protonix) 40 MG TABLET.DR 1 TAB PO BID GERD (Reported) Triage Nurses Notes Reviewed? yes Onset: Abrupt Duration: minute(s): Location: FUENTES CATHETER Radiation: no radiation Activities at Onset: none HPI: 71-year-old gentleman history of urinary retention was seen in the emergency department a few moments ago. He had a Fuentes replaced. He notes that when he arrived home he saw that there was a crack in the Fuentes tubing at the connection to the Fuentes bag. The Fuentes tubing was leaking urine. He returns to have the Fuentes replaced. He notes that he has no discomfort. He is otherwise well. Past History Travel History Traveled to [place] past 21 day No Medical History Any Pertinent Medical History? 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 No Review of Systems Review of Systems Constitutional: Reports: no symptoms. EENTM: Reports: no symptoms. Respiratory: Reports: no symptoms. Cardiovascular: Reports: no symptoms. GI: Reports: no symptoms. Genitourinary: Reports: no symptoms. Musculoskeletal: Reports: no symptoms. Skin: Reports: no symptoms. Neurological/Psychological: Reports: no symptoms. Hematologic/Endocrine: Reports: no symptoms. Immunologic/Allergic: Reports: no symptoms. All Other Systems: Reviewed and Negative Physical Exam Physical Exam General Appearance: well developed/nourished, no apparent distress Head: atraumatic, normal appearance Gastrointestinal: normal bowel sounds, soft, non-tender Male Genitals: normal genitalia Extremities: normal range of motion Neurologic/Psych: no motor/sensory deficits, awake, alert, oriented x 3 Core Measures ACS in differential dx? No Severe Sepsis Present: No Septic Shock Present: No Progress Differential Diagnosis: Fuentes CATHETER PROBLEM Plan of Care: Orders Procedure Date/time Status Fuentes, Insertion/Removal/Asses 06/30 2256 Active Current Medications Sig/Crow Start time Last Medication Dose Stop Time Status Admin Lidocaine 1 EARL ONCE ONE 06/30 2300 UNVr (Xylocaine 2% Jelly 06/30 2301 5ML) Initial ED EKG: none Departure Departure Disposition: HOME OR SELF CARE Condition: Stable Clinical Impression Primary Impression: Fuentes catheter problem Referrals: ADAM VAN DO (PCP/Family) Departure Forms: Customer Survey General Discharge Information Comments FUENTES CATHETER TO BE REPLACED... PT HAS APPT TOMORROW WITH UROLOGY.
[2016-06-30 23:36] VITALS: BP 160/80
[2016-07-25] MEDS ORDERED: AMLODIPINE BESY10 M1 PO (11:15)
[2016-07-25] MEDS ORDERED: QUINAPRIL HCL20 M1 PO (11:15)
== END 2016-06-30 23:46 ==
LOC: ERH 22:49
DX: T83.018A Breakdown (mechanical) of other urinary catheter, initial encounter (principal)

== ENCOUNTER 2016-07-11 08:54 | Emergency (ER) | payer OTHER ==
[~2016-07-11] VITALS: Ht 188 cm; Wt 87.1 kg
[2016-07-11 08:59] VITALS: BP 163/102
--- NOTE | 2016-07-11 09:12 | ED GI/GU/ABDOMINAL COMPLAINT ---
History of Present Illness General Chief Complaint: Male Genitourinary Problems Stated Complaint: UNABLE TO URINATE Source: patient, family, old records Exam Limitations: no limitations Vital Signs & Intake/Output Vital Signs & Intake/Output Vital Signs Date Time Temp Pulse Resp B/P B/P Pulse O2 O2 Flow FiO2 Mean Ox Delivery Rate 07/11 0859 97.2 107 16 163/102 96 Allergies Coded Allergies: No Known Allergies (06/30/16) Reconcile Medications Apixaban (Eliquis) 5 MG TABLET 1 TAB PO BID A FIB TAKE 2 TABLETS (10MG) TWICE DAILY FOR 7 DAYS (TILL THE END OF 07/06) THEN 1 TABLET BY MOUTH TWICE DAILY TEHERAFTER Metoprolol Succ XL (Toprol XL) 100 MG TAB.ER.24H 1 TAB PO DAILY A FIB ( Reported) Pantoprazole Sodium (Protonix) 40 MG TABLET.DR 1 TAB PO BID GERD (Reported) Tamsulosin HCl 0.4 MG CAP.ER.24H 1 CAP PO DAILY BLADDER (Reported) Triage Note: 71 Y/O MALE C/O URINARY RETENTION SINCE YESTERDAY; STATES HE HAD A RIGHT SHOULDER REPLACEMENT 2 WEEKS AGO AND HAS BEEN HAVING DIFFICULTY SINCE. HAD CATHETER REMOVED YESTERDAY AND HAS BEEN UNABLE TO VOID SINCE. C/O "PRESSURE" IN BLADDER. MD CALL DR NIXON @ [phone] Triage Nurses Notes Reviewed? yes HPI: Patient had recent shoulder surgery and then went into urinary retention afterwards. Patient was seen in the emergency department and a Cintron catheter was placed. Patient saw Dr. Nixon yesterday and the Cintron catheter was removed however he has been unable to urinate since last night. He is now having pressure sensation over his suprapubic area. There is no radiation. There are no aggravating or mitigating factors. He rates it as 5 out of 10. Patient called Dr[address] Nixon was ejected him to come to the emergency room and he would see him here. Patient denies any fevers or chills. There is no nausea or vomiting. Past History Travel History Traveled to [place] past 21 day No Medical History Any Pertinent Medical History? 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 No Review of Systems Review of Systems Constitutional: Reports: no symptoms. EENTM: Reports: no symptoms. Respiratory: Reports: no symptoms. Cardiovascular: Reports: no symptoms. GI: Reports: see HPI, abdominal pain. Genitourinary: Reports: see HPI. Musculoskeletal: Reports: no symptoms. Skin: Reports: no symptoms. Neurological/Psychological: Reports: no symptoms. Hematologic/Endocrine: Reports: no symptoms. Immunologic/Allergic: Reports: no symptoms. All Other Systems: Reviewed and Negative Physical Exam Physical Exam General Appearance: well developed/nourished, alert, awake Head: atraumatic, normal appearance Eyes: Bilateral: PERRL, EOMI. Ears, Nose, Throat, Mouth: hearing grossly normal, moist mucous membrane Neck: normal inspection, supple, full range of motion Respiratory: normal breath sounds, chest non-tender, no respiratory distress, lungs clear Cardiovascular: regular rate/rhythm, normal peripheral pulses Gastrointestinal: normal bowel sounds, soft, no organomegaly Back: normal inspection Extremities: normal range of motion Neurologic/Psych: no motor/sensory deficits, awake, alert, oriented x 3, normal gait, normal mood/affect Skin: intact, normal color, warm/dry Core Measures ACS in differential dx? No Severe Sepsis Present: No Septic Shock Present: No Progress Differential Diagnosis: urinary retention, UTI/pyelo Plan of Care: Orders Procedure Date/time Status Cintron, Insertion/Removal/Asses 07/11 910 Active CULTURE,URINE 07/11 910 Active URINALYSIS 07/11 0911 Complete Laboratory Tests 07/11/16 0927: Urine Color YEL, Urine Clarity CLDY H, Urine pH 6.0, Ur Specific [place] 1.015, Urine Protein 30 H, Urine Ketones TRACE H, Urine Nitrite POS H, Urine Bilirubin NEG, Urine Urobilinogen 0.2, Ur Leukocyte Esterase LARGE H, Ur Microscopic SEDIMENT EXAMINED, Urine RBC 1-3, Urine WBC > 75 H, Ur Epithelial Cells RARE, Urine Bacteria MOD H, Urine Hemoglobin MOD H, Urine Glucose NEG Microbiology 07/11 09 URINE ROUT: Urine Culture - RECD Initial ED EKG: none Comments: Patient has Macrobid at home that he has not started yet. Patient advised to take that for his urinary tract infection. Departure Departure Disposition: HOME OR SELF CARE Condition: Stable Clinical Impression Primary Impression: Urinary retention Referrals: SHIRIN PAUL,ADAM GREENBERG DO (PCP/Family) Additional Instructions: Follow-up with Dr. Nixon for surgery on . Return for any concerns. Departure Forms: Customer Survey General Discharge Information
[2016-07-11] MEDS ORDERED: TAMSULOSIN HCL0.4 M1 PO (09:34)
[2016-07-25] MEDS ORDERED: AMLODIPINE BESY10 M1 PO (11:15)
[2016-07-25] MEDS ORDERED: QUINAPRIL HCL20 M1 PO (11:15)
== END 2016-07-11 10:18 ==
LOC: ERH 08:54
DX: R33.9 Retention of urine, unspecified (principal)
CPT/HCPCS: 81001; 87086

== ENCOUNTER 2016-07-30 02:17 | Inpatient (IN) | payer OTHER ==
[~2016-07-30] VITALS: Ht 188 cm; Wt 83.9 kg
[~2016-07-30 02:17] MED LIST changes: +QUINAPRIL HCL20 M1 PO; +TAMSULOSIN HCL0.4 M1 PO
[2016-07-30 11:28] LABS: ABSOLUTE BASOPHIL COUNT 0 /CUMM (0.0-0.2); ABSOLUTE EOSINOPHIL COUNT 0.1 /CUMM (0.0-0.7); ABSOLUTE GRANULOCYTE CT 5.9 /CUMM (1.4-6.5); ABSOLUTE LYMPH COUNT 1.8 /CUMM (1.2-3.4); ABSOLUTE MONOCYTE COUNT 0.6 /CUMM (0.10-0.60); BASOPHIL % 0.5 % (0.0-2.0); EOSINOPHIL % 1.2 % (0-5); GRANULOCYTE % 70.3 % (42.2-75.2); HEMATOCRIT 44.9 % (42-52); MEAN CORPUSCULAR HGB 29.1 PG (27.0-31.0); MEAN CORPUSCULAR HGB CONC 33.2 G/DL (33.0-37.0); MEAN CORPUSCULAR VOLUME 87.7 FL (80.0-94.0); MEAN PLATELET VOLUME 7.6 FL (7.4-10.4); PLATELET COUNT 335 /CUMM (130-400); RBC DISTRIBUTION WIDTH 14.4 % (11.5-14.5); RED BLOOD CELL CT 5.12 /CUMM (4.70-6.10); WHITE BLOOD CELL COUNT 8.4 /CUMM (4.8-10.8)
[2016-07-30 13:45] VITALS: BP 148/108
--- NOTE | 2016-07-30 14:00 | NUR ---
RECEIVED FROM PACU: A 71 YEAR OLD MALE S/P TURP. ALERT ORIENTED X3. SPOUSE AT BEDSIDE. SETTLED INTO BED. AFIB ON MONITOR, PVC'S NOTED. RATE IN 80'S. CINTRON TO BEDSIDE DRAINAGE WITH CBI, PINK TINGED NO CLOTS NOTED. REVIEWED POC WITH PATIENT AND SPOUSE. CALL KOWALSKI IN REACH. SEE NURSING ASSESSMENT FLOWSHEETS FOR FURTHER DOCUMENTATION.
--- NOTE | 2016-07-30 14:01 | Cons- Medical ---
FATEMEH GRANT 07/30/16 1401: General Information and HPI Consulting Request Date of Consult: 07/30/16 Requested By: BLAKE CARPIO MD Reason for Consult: Post Op Source of Information: patient Exam Limitations: no limitations History of Present Illness: This is a 71-year-old gentleman with past medical history significant for paroxysmal A. fib A.fib diagnosed in 1995, status post 3 cardioversions, PE on Eliquis, hypertension, GERD, arthritis, status post reverse shoulder replacement surgery 5 weeks ago status post TURP earlier today. Medical service was consulted for postop management of his blood pressure. The patient was diagnosed with paroxysmal atrial fibrillation in 1995, had 3 unsuccessful cardioversion procedure, was maintained on Eliquis. According to the patient, he developed pulmonary embolism after his right shoulder surgery 5 weeks ago. Also reports history of DVT/PE in after his knee surger. Regarding his hypertension, he is on amlodipine 10 mg, metoprolol succinate 150 mg, and quinapril 20 mg. He is compliant with all his medication and took his metoprolol and amlodipine this morning before his surgery. He states that his blood pressure is usually well controlled on above medications. Postop Systolic blood pressure ranging 120s to 150s, his diastolic blood pressure was in 100s. The patient denies any headache, chest pain, shortness of breath, nausea, vomiting, dizziness, lightheadedness, abdominal pain, urinary symptoms. Allergies/Medications Allergies: Coded Allergies: No Known Allergies (06/30/16) Home Med List: Amlodipine Besylate 10 MG TABLET 1 TAB PO DAILY htn (Reported) Apixaban (Eliquis) 5 MG TABLET 1 TAB PO BID A FIB TAKE 2 TABLETS (10MG) TWICE DAILY FOR 7 DAYS (TILL THE END OF 07/06) THEN 1 TABLET BY MOUTH TWICE DAILY TEHERAFTER Metoprolol Succ XL (Toprol XL) 100 MG TAB.ER.24H 1.5 TAB PO DAILY A FIB ( Reported) Pantoprazole Sodium (Protonix) 40 MG TABLET.DR 1 TAB PO BID GERD (Reported) Quinapril HCl 20 MG TABLET 1 TAB PO DAILY htn (Reported) Current Medications: Current Medications Sig/Crow Start time Last Medication Dose Route Stop Time Status Admin Al Hydroxide/Mg 30 ML Q6P PRN 07/30 1015 AC Hydroxide PO Amlodipine Besylate 10 MG DAILY 07/31 1000 AC PO Amlodipine Besylate 10 MG DAILY 07/30 1136 DC PO Apixaban 5 MG BID 07/30 2200 AC PO Ciprofloxacin 500 MG ONCE 07/30 0000 NR PO 07/30 2359 Dextrose/Sodium 1,000 ML .[id number] 07/30 1015 AC 07/30 Chloride IV 1030 Docusate Sodium 100 MG DAILY NEEDED PRN 07/30 1015 AC PO Fentanyl Citrate 100 MCG .STK-MED ONE 07/30 0718 DC IM 07/30 0719 Lisinopril 20 MG DAILY 07/30 0950 DC 07/30 PO 07/30 0951 1105 Metoprolol Succinate 150 MG DAILY 07/31 1000 AC PO Midazolam HCl 2 MG .STK-MED ONE 07/30 0719 DC IM 07/30 0720 Omeprazole 40 MG DAILY AC 07/30 1139 AC 07/30 PO 1611 Oxycodone/ 1 TAB Q4P PRN 07/30 1015 AC Acetaminophen PO Review of Systems Review of Systems Constitutional: Reports: no symptoms. EENTM: Reports: no symptoms. Cardiovascular: Reports: no symptoms. Respiratory: Reports: no symptoms. GI: Reports: no symptoms. Genitourinary: Reports: no symptoms. Musculoskeletal: Reports: no symptoms. Skin: Reports: no symptoms. Neurological/Psychological: Reports: no symptoms. Hematologic/Endocrine: Reports: no symptoms. Immunologic/Allergic: Reports: no symptoms. 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 family Services at Home: None Functional Ability ADLs Independent: dressing, eating, toileting, bathing. Ambulation: independent Exam & Diagnostic Data Last 24 Hrs of Vital Signs/I&O Vital Signs Date Time Temp Pulse Resp B/P B/P Pulse O2 O2 Flow FiO2 Mean Ox Delivery Rate 07/30 1728 98.8 78 16 144/80 96 07/30 1540 128/90 07/30 1345 97.7 74 18 148/108 95 Room Air Intake & Output 07/30 1600 07/30 0800 07/30 0000 Intake Total 150 Output Total 500 Balance -350 Intake, Oral 150 Output, Urine 500 Patient 185 lb Weight Weight Reported by Patient Measurement Method Physical Exam General Appearance: well developed/nourished, no apparent distress, alert, awake , comfortable Head: atraumatic, normal appearance Eyes: Bilateral: normal appearance, PERRL, EOMI. Ears, Nose, Throat: normal pharynx, normal ENT inspection, hearing grossly normal Neck: normal inspection, supple, full range of motion, JVD Respiratory: normal breath sounds, chest non-tender, no respiratory distress Cardiovascular: normal peripheral pulses, irregularly irregular Gastrointestinal: normal bowel sounds, soft, non-tender, no organomegaly Back: normal inspection Extremities: Rt UE in sling, pulses wnl and symmetrical Neurologic/Psych: awake, alert, oriented x 3, reflexes wnl Cranial Nerves: normal hearing, normal speech, PERRL Skin: intact, normal color Last 24 Hrs of Labs/Nilson: Laboratory Tests 07/30/16 1120: Anion Gap 8, Estimated GFR > 60, BUN/Creatinine Ratio 27.8 H, CBC w Diff NO MAN DIFF REQ, RBC 5.12, MCV 87.7, MCH 29.1, RDW 14.4, MPV 7.6, Gran % 70.3, Lymphocytes % 21.0, Monocytes % 7.0, Eosinophils % 1.2, Basophils % 0.5, Absolute Granulocytes 5.9, Absolute Lymphocytes 1.8, Absolute Monocytes 0.6, Absolute Eosinophils 0.1, Absolute Basophils 0, PUBS MCHC 33.2 Assessment/Plan Assessment/Plan 71-year-old gentleman with past medical history significant for paroxysmal A. fib A.fib diagnosed in 1995, status post 3 cardioversions, PE on Eliquis, hypertension, GERD, arthritis, status post reverse shoulder replacement surgery 5 weeks ago status post TURP earlier today. Postop Systolic blood pressure ranging 120s to 150s, his diastolic blood pressure was in 100s. Problem list #Hypertension #Paroxysmal A. 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 * Continue PPIs * Continue Eliquis * Other managements including pain control as per urology service. Problem List: 1. Pulmonary embolus 2. Hypertension 3. Atrial fibrillation Copies To: SHIRIN PAUL,BLAKE Consult Acknowledgment - Thank you for your consult request. RONY ZARATE 07/30/16 1511: Assessment/Plan Consult Acknowledgment - Thank you for your consult request. Attending MD Review Statement Attending Statement Attending MD Statement: examined this patient, discuss w/resident/PA/POLICY VALUE CALCULATOR, agreed w/resident/PA/POLICY VALUE CALCULATOR, discussed with family, reviewed EMR data (avail), discussed with nursing, discussed with case mgmt, reviewed images, amended to note
--- NOTE | 2016-07-30 14:15 | NUR ---
NOTIFIED MOD #158 DR GRANT OF BP 148/108, P 74. PER RESIDENT RECHECK IN ONE HOUR AND MAY ADD ANOTHER BP MEDICATION. WILL CONTINUE TO MONITOR.
[2016-07-30 15:40] VITALS: BP 128/90
--- NOTE | 2016-07-30 16:10 | Operative Report ---
Operative/Inv Procedure Report Surgery Date: 07/30/16 Name of Procedure: LASER TURP Pre-Operative Diagnosis: bph with retention. Post-Operative Diagnosis: same Estimated Blood Loss: less than 50ml Surgeon/Agent Ticketing Gate: BLAKE CARPIO MD Anesthesia: moderate sedation Drains: 22 fr 3-way see for cbi Complications: none Operative/Procedure Note Note: The patient was taken to the operating room and placed on the OR table in supine position. Timeout was performed, with the patient awake, in order to confirm the patient's correct identity, procedure, laterality, antibiotics, and other pertinent radha-operative information. After adequate anesthesia and antibiotics , the indwelling see was removed. The patient was then draped and prepped in the usual surgical fashion. He was positioned comfortably and securely in Yellow-Fin stirrups. A lubricated 22 [place] cystoscope sheath with 30 angle lens was inserted under direct visualization. On entering the prostatic urethra, the prostate gland was noted to have significantly obstructing bilateral prostate lobes, and a small- moderate sized middle lobe. The veru-montanum was noted to be normal. Upon entering the bladder, through a narrowed bladder neck, the bladder was noted to be trabeculated with multiple cellules. There was no evidence of bladder tumor, nor stones. Both ureteral orifices were noted to be in their orthotopic position with clear reflux bilaterally. The bladder was drained, via the cystoscope, and the cystoscope was removed. A 26 [place] laser resectoscope sheath was then inserted into the penis, with a 30 angle lens, under direct visualization. Maintaining the cystoscope at the level of the veru-montanum, the diode laser fiber was then inserted through the scope and visualized directly in front of the laser resectoscope sheath, in proper orientation. Photo-vaporization of the left lobe was performed in order to open a wide prostatic urethral channel on the left side. The resection proceeded from the 2-6 o'clock position, obliterating the glandular tissue, but not reaching or penetrating the capsule. Laser TURP was performed in a sweeping manner in order to get good vaporization of the prostate lobe, and good hemostasis. The resection of the left apical lobe was haulted at the level of the vera montanum, so as to preserve the external sphincter. Once the left lobe was resected in a satisfactory manner, the right lobe of the prostate was then photo vaporized in the same manner from the 10:00 to the 6 o'clock position. Once again the resection of the right lobe was haulted at the level of the veru- montanum. The middle lobe was then photo vaporized, with the diode laser, in order to further open the prostatic channel adequately. Once hemostasis and an open channel was confirmed, the resectoscope was then reinserted into the bladder. The bladder was again thoroughly and systematically surveyed in order to confirm no evidence of injury to the bladder or orifices. The bladder was copiously irrigated in order to us to ensure no foreign body was in the bladder. The bladder was left full and the resectoscope was then removed under direct visualization again confirming good hemostasis. The patient was noted to have mild spontaneous drainage upon removal of the resectoscope. All sponge, needle, and instrument count were correct at the end of the case. A 22 [place] 3-way See catheter was then inserted into the bladder primarily for tamponade, and drained clear fluid prior to inflating the 30 mL balloon. The See catheter was attached to a drainage bag, and NS CBI irrigation with clear outflow on mod-rate. The patient tolerated the procedure well and was taken to the recovery room in satisfactory condition. Discharge Disposition: PACU
[2016-07-30 17:28] VITALS: BP 144/80
[2016-07-30 23:49] VITALS: BP 140/80
--- NOTE | 2016-07-31 07:24 | PN- Medicine Consult ---
FATEMEH GRANT 07/31/16 0724: Assessment/Plan Assessment/Plan Assessment: 71-year-old gentleman with past medical history significant for paroxysmal A. fib A.fib diagnosed in 1995, status post 3 cardioversions, PE on Eliquis, hypertension, GERD, arthritis, status post reverse shoulder replacement surgery 5 weeks ago status post TURP yesterday. Blood pressure has remained systolic 120s to 140s, diastolics 80s to 90s. Telemetry: Atrial fibrillation, rate 64-80, PVCs, no events. Problem list #Hypertension #Paroxysmal A. fib on Eliquis #History of PE on Eliquis #GERD Plan: * C/W security monitor * C/W metoprolol, lisinopril, amlodipine at current dose. * C/W PPIs * C/W Eliquis * Other managements including pain control as per urology service. Problem List: 1. Pulmonary embolus 2. Hypertension 3. Atrial fibrillation Subjective Subjective: Patient seen and examined. Offers no complaints. Denies headache, nausea, vomiting, dizziness, lightheadedness, shortness of breath, chest pain, abdominal pain, urinary symptoms. No hematuria overnight. Blood pressure has remained systolic 120s to 140s, diastolics 80s to 90s. Telemetry: Atrial fibrillation, rate 64-80, PVCs, no events. Review of Systems Constitutional: Reports: no symptoms. Objective Last 24 Hrs of Vital Signs/I&O Vital Signs Date Time Temp Pulse Resp B/P B/P Pulse O2 O2 Flow FiO2 Mean Ox Delivery Rate 07/30 2349 98.0 80 16 140/80 97 Room Air 07/30 1728 98.8 78 16 144/80 96 07/30 1540 128/90 07/30 1345 97.7 74 18 148/108 95 Room Air Intake & Output 07/31 1600 07/31 0800 07/31 0000 Intake Total 120 750 Output Total 2750 Balance 120 -2000 Intake, IV 300 Intake, Oral 120 450 Number 1 Bowel Movements Output, Urine 2750 Physical Exam General Appearance: well developed/nourished, no apparent distress, alert, awake , comfortable Head: atraumatic, normal appearance Ears, Nose, Throat: normal pharynx, normal ENT inspection Neck: normal inspection, supple Cardiovascular: irregularly irregular Respiratory: normal breath sounds, chest non-tender, no respiratory distress Abdomen: normal bowel sounds, soft, non-tender Back: normal inspection Extremities: no edema, RUE in sling Neurologic/Psychiatric: awake, alert, Nl reflexes Skin: intact, normal color, warm/dry Current Medications: Current Medications Sig/Crow Start time Last Medication Dose Route Stop Time Status Admin Al Hydroxide/Mg 30 ML Q6P PRN 07/30 1015 AC Hydroxide PO Amlodipine Besylate 10 MG DAILY 07/31 1000 AC PO Amlodipine Besylate 10 MG DAILY 07/30 1136 DC PO Apixaban 5 MG BID 07/30 2200 AC 07/30 PO 2216 Ciprofloxacin 500 MG ONCE 07/30 0000 DC PO 07/30 2359 Dextrose/Sodium 1,000 ML .[id number] 07/30 1015 DC 07/30 Chloride IV 1030 Docusate Sodium 100 MG DAILY NEEDED PRN 07/30 1015 AC PO Ibuprofen 600 MG ONCE ONE 07/30 2345 DC 07/31 PO 07/30 2346 0010 Lisinopril 20 MG DAILY 07/30 0950 DC 07/30 PO 07/30 0951 1105 Metoprolol Succinate 150 MG DAILY 07/31 1000 AC PO Omeprazole 40 MG DAILY AC 07/30 1139 AC 07/31 PO 0526 Oxycodone/ 1 TAB Q4P PRN 07/30 1015 AC 07/30 Acetaminophen PO 2218 Results Last 24 Hrs Lab/Nilson Results: Laboratory Tests 07/30/16 1120: Anion Gap 8, Estimated GFR > 60, BUN/Creatinine Ratio 27.8 H, CBC w Diff NO MAN DIFF REQ, RBC 5.12, MCV 87.7, MCH 29.1, RDW 14.4, MPV 7.6, Gran % 70.3, Lymphocytes % 21.0, Monocytes % 7.0, Eosinophils % 1.2, Basophils % 0.5, Absolute Granulocytes 5.9, Absolute Lymphocytes 1.8, Absolute Monocytes 0.6, Absolute Eosinophils 0.1, Absolute Basophils 0, PUBS MCHC 33.2 RONY ZARATE 07/31/16 0827: Attending MD Review Statement Attending Sign Off Attending Cosign Statement: I have: examined this patient, reviewed aval EMR data, personally reviewd images, discussd w/resident/PA/JUNIOR UNDERWRITER, discussed mgmt plan w/nidia, discussed mgmt plan w/CM, discussed mgmt plan w/pt, agreed w/resident/PA/JUNIOR UNDERWRITER. Other Findings: Patient medically stable for discharge, encourage IS, CBI as per urology, discharge disposition as per urology, f/u o/p PCP and urology.
[2016-07-31 08:34] VITALS: BP 156/96
[2016-07-31 08:59] VITALS: BP 156/84
[2016-07-31] MEDS ORDERED: PERCOCET 5-3251 EACH PO (13:32)
[2016-07-31] MEDS ORDERED: AUGMENTIN 500-1 EACH PO (13:33)
== END 2016-07-31 15:20 | DRG 714 ==
LOC: STS 02:17 → PACUH 09:56 → 1NO 09:56 → ENRESERV 10:41 → CANRESERV 10:41 → EDBEDREQ 11:39 → ENRESERV 11:42 → ENTRNSPT 13:00 → 1NO 13:20 → EDTRNSPTSTS 13:23 → CMPTRNSPT 13:35 → 1NO 14:41 → ENPENDDIS 07-31 13:31 → 1NO 07-31 15:20
PROVIDERS: ADMIT Urology
PROC: 0VT08ZZ Resection of Prostate, Via Natural or Artificial Opening Endoscopic (ICD-10-PCS; principal; 2016-07-30)
DX: N40.1 Benign prostatic hyperplasia with lower urinary tract symptoms (principal); I48.0 Paroxysmal atrial fibrillation; I10 Essential (primary) hypertension; I48.91 Unspecified atrial fibrillation; R33.8 Other retention of urine; Z79.01 Long term (current) use of anticoagulants; Z86.711 Personal history of pulmonary embolism; K21.9 Gastro-esophageal reflux disease without esophagitis
CPT/HCPCS: 1NSP; 82436; J7042; J7508